=== PATIENT | male | born 1945 | race Caucasian/White ===

== ENCOUNTER 2020-06-06 14:30 | Outpatient (RCR) | payer MEDICARE, SELFPAY ==
[2020-04-12 07:50] VITALS: BMI 31.1
[2020-04-12 07:59] VITALS: BMI 31.1
== END 2020-07-02 15:56 | disposition home or self-care (01) ==
LOC: ANHDMC 14:30
PROVIDERS: PCP Family Medicine; Visit Provider Family Medicine
DX: E11.65 Type 2 diabetes mellitus with hyperglycemia (principal); Z71.3 Dietary counseling and surveillance; Z71.89 Other specified counseling
CPT/HCPCS: 97802; G0108; G0109

== ENCOUNTER 2020-12-13 10:57 | Outpatient (CLI) | payer MEDICARE, SELFPAY ==
--- NOTE | ~2020-12-13 | XR_ITS ---
EXAMINATION: XR chest 2V 12/13/2020 11:10 INDICATION: Cough PROCEDURE: 2 view chest COMPARISON: 07/27/2027 FINDINGS: The lungs are clear. The cardiomediastinal silhouette is within normal limits. There are no pleural effusions. There is no pneumothorax suspected. IMPRESSION: 1: NO ACUTE CARDIOPULMONARY DISEASE. Reviewed, dictated and finalized at location B.
== END 2020-12-13 10:58 | disposition home or self-care (01) ==
PROVIDERS: PCP Family Medicine; Visit Provider Family Medicine
DX: R05 Cough (principal); R09.89 Other specified symptoms and signs involving the circulatory and respiratory systems
CPT/HCPCS: 71046

== ENCOUNTER → 2021-04-05 03:04 | Outpatient (CLI) | payer MEDICARE, SELFPAY ==
[2021-04-05 18:36] LABS: SARS-CoV-2 RNA PCR Negative
== END ==
PROVIDERS: PCP Family Medicine; Visit Provider Family Medicine
DX: R05.9 Cough, unspecified (principal); Z20.822 Contact with and (suspected) exposure to COVID-19
CPT/HCPCS: C9803; U0003; U0005

== ENCOUNTER 2021-04-22 15:13 | Outpatient (CLI) | payer MEDICARE, SELFPAY ==
--- NOTE | ~2021-04-22 | XR_ITS ---
EXAMINATION: XR lumbar spine min 4V DATE: 04/22/2021 15:50 INDICATION: Dorsalgia, unspecified. Sciatica. TECHNIQUE: 5 views of lumbar spine were obtained. COMPARISON: Lumbar spine radiographs 10/22/2015, CT abdomen 10/13/2007 FINDINGS: There is 7 degrees levocurvature of thoracolumbar spine. There is mild chronic anterior wed ging of T12 and L1 vertebral bodies. There is mildly decreased disc height at L4-L5. There are endpla te osteophytes at all levels. There is multilevel facet joint osteoarthritis, severe bilaterally at L 5-S1. IMPRESSION: 1. Mild lumbar spondylosis. Reviewed, dictated and finalized at location A. IMPRESSION: 1. Mild lumbar spondylosis.
== END 2021-04-22 15:14 | disposition home or self-care (01) ==
LOC: ANHIMG 15:18
PROVIDERS: PCP Family Medicine; Visit Provider Nurse Practitioner
DX: M47.896 Other spondylosis, lumbar region (principal)
CPT/HCPCS: 72110

== ENCOUNTER 2021-04-24 11:50 | Emergency (ER) | payer MEDICARE, SELFPAY ==
[2021-04-24 11:52] VITALS: BP 155/63; PULSE 81; RESP 18; TEMP 36.3; O2SAT 100
[2021-04-24] MEDS: HYDROcodone/acetaminophen (*CRX) 5-325 MG TABLET 1 TAB PO (12:58)
--- NOTE | 2021-04-24 13:55 | ED.GENADULT ---
HPI - General Adult General Chief complaint: Back Pain/Injury <Ronal Cedillo PA-C - Last Filed: 04/24/21 14:01> Stated complaint: back pain <JAMES Richards Last Filed: 04/24/21 14:01> Time Seen by Provider: 04/24/21 12:35 <JAMES Richards Last Filed: 04/24/21 14:01> Source: patient and RN notes reviewed <JAMES Richards Last Filed: 04/24/21 14:01> Mode of arrival: ambulatory <JAMES Richards Last Filed: 04/24/21 14:01> Limitations: no limitations <JAMES Richards Last Filed: 04/24/21 14:01> History of Present Illness HPI narrative: Patient is a 76-year-old male who presents with left lower sciatic pain with pain radiating from the left SI region down the extremities being followed by primary care for this who put him on Toradol and Flexeril which have not helped he also had unremarkable radiographs except for arthritis he denies injury or trauma pain is worse with certain positions and activities he has follow-up with primary care for reevaluation denies any bladder or bowel incontinence or retention or any loss of function in the extremity <JAMES Richards Last Filed: 04/24/21 14:01> Related Data Home medications: Home Medications Medication Instructions Recorded Confirmed aspirin 81 mg tablet,delayed 81 mg PO DAILY 08/31/19 04/19/21 release dorzolamide 2 % eye drops 1 drop EACH EYE TID 02/27/20 04/19/21 latanoprost 0.005 % eye drops 1 drop EACH EYE DAILY 02/27/20 04/19/21 omega 6-ccj-brn-fish oil 1,200 mg 1 cap PO BID cap 02/27/20 04/19/21 (144 mg-216 mg) capsule prednisolone acetate 1 % eye 1 drop EACH EYE Q12H 02/27/20 04/19/21 drops,suspension timolol 0.5 % eye drops 1 drop EACH EYE Q12H 02/27/20 04/19/21 pioglitazone 45 mg tablet 45 mg PO DAILY tablet 11/22/20 04/19/21 pravastatin 40 mg tablet 40 mg PO DAILY tablet 11/22/20 04/19/21 glyburide 10 mg PO BID 12/12/20 04/19/21 loratadine 10 mg tablet 10 mg PO DAILY 12/17/20 04/19/21 <Ronal Cedillo PA-C - Last Filed: 04/24/21 14:01> Allergies/adverse reactions: Allergies Allergy/AdvReac Type Severity Reaction Status Date / Time Penicillins Allergy Unknown Unknown Verified 04/24/21 12:03 <Ronal Cedillo PA-C - Last Filed: 04/24/21 14:01> Review of Systems Review of Systems: All systems reviewed & are unremarkable except as noted in HPI and below <Ronal Cedillo PA-C - Last Filed: 04/24/21 14:01> [facility] Past Medical History Medical History: Medical History BPH NOS w/o ur obs/LUTS Dyslipidemia Environmental allergies Essential (primary) hypertension Left knee DJD Osteoarthritis Respiratory crackles at both lung bases Right knee DJD Type 2 diabetes mellitus without complication, without long-term current use of insulin <Ronal Cedillo PA-C - Last Filed: 04/24/21 14:01> Surgical History Surgical History: Surgical History History of removal of cyst (~1964) Right Wrist <Ronal Cedillo PA-C - Last Filed: 04/24/21 14:01> Family History Family History: Family History Sibling Family history of chronic obstructive pulmonary disease Father Family history of throat cancer Mother Family history of cardiovascular disease Other Family history of alcoholism Family history of arthritis <Ronal Cedillo PA-C - Last Filed: 04/24/21 14:01> Social History Social History: Social History Smoking packs per day: 1 Smoking cigarettes per day: 20.0 Years smoked: 25 Smoking pack-years: 25.00 Smoking status: Former smoker Second hand tobacco smoke exposure: No Smoking end date: 09/18/79 Alcohol intake: never Substance use: never Substance use type: does not use Gender
--- NOTE | 2021-04-24 14:23 | PC.NURSE ---
Pt still complaining of 10/10 pain after [facility] when completing discharge instructions. Requesting additional pain medication prior to leaving. JHONY Lund aware.
[2021-04-24] MEDS: diazePAM (*CRX) 5 MG TABLET 2.5 MG PO (14:48)
[2021-04-24 14:59] VITALS: BP 152/62; PULSE 83; RESP 18; TEMP 36.3; O2SAT 100
== END 2021-04-24 15:02 | disposition home or self-care (01) ==
PROVIDERS: Emergency Provider General Practice; PCP Family Medicine
DX: M54.16 Radiculopathy, lumbar region (principal); I10 Essential (primary) hypertension; E78.5 Hyperlipidemia, unspecified; M19.90 Unspecified osteoarthritis, unspecified site; E11.9 Type 2 diabetes mellitus without complications; Z79.4 Long term (current) use of insulin
CPT/HCPCS: 99283; A9270

== ENCOUNTER 2021-05-27 13:45 | Outpatient (RCR) | payer MEDICARE, SELFPAY ==
--- NOTE | 2021-05-08 16:07 | PTOPEVAL ---
Thank you for referring Wyatt Maxwell to [facility].? The patient is scheduled to be seen for therapy? 2 x/week for 4 weeks. Please review, sign, date and return this plan of care BIRGIT. I agree with and certify that the following plan of care is medically necessary. Referring Physician Date Admitting Provider: Attending Provider: Magalie Kirby, MONIQUE and Dr. Tino Monge Diagnosis low back pain and left knee pain Onset 3 wks Cause unknown Additional Evaluation Detail x-ray: There is 7 degrees levocurvature of thoracolumbar spine. There is mild chronic anterior wedging of T12 and L1 vertebral bodies. There is mildly decreased disc height at L4-L5. There are endplate osteophytes at all levels. There is multilevel facet joint osteoarthritis, severe bilaterally at L5-S1. Subjective Information He was given medication which Query Text:As Reported By Patient/ he reports improved his back Family pain. He reports his main issue now is left knee. Wants therapy to focus on his knee. He reports limitations with walking due to pain. Reports he was told he had inflammation of left knee. He has increased pain with prolonged standing, ascending steps, lifting/carrying. Reports his leg gave out on him when ascending steps. He has had multiple falls on the ice last year. Recent injection into the left knee. States he needs a TKR and is planning on having surgery in Jul. He has a walker and cane, but does not use them consistently. Prior Level of Function Home Setting Environmental Barriers Stairs, 2-4,Stairs, Greater than 4 Comments Additional Prior Level of Function He has 2 steps to enter and 1 Comments flight to basement. Pain Assessment Lower Back Reported Pain Level 1 Pain Description Aching Lowest Pain Intensity 0 Greatest Pain Intensity 1 Left Knee(s) Reported Pain Leve
--- NOTE | 2021-05-10 15:37 | PCPTNOTE ---
Spoke with pt regarding pacing his exercises during the day depending on his task and fatigue.
--- NOTE | 2021-06-03 14:43 | PCPTNOTE ---
Patient called & cancelled scheduled appointment this date due to not being able see well enough to drive today.
--- NOTE | 2021-06-05 07:29 | PCPTNOTE ---
Patient called & cancelled scheduled appointment this date due to eye problems. Did not resched his re-eval.
--- NOTE | 2021-06-17 09:21 | PCPTNOTE ---
Admitting Provider: Attending Provider: Magalie Kirby NP Patient:Wyatt Maxwell Date of :1945 Physical Therapy Discharge Note Patient has not returned for any further treatments since 05/27/2021, therefore he will be discharged at this time. Patient?s initial visit was on 05/08/2021 15:00 and he had a total of 5 visits with 3 cancels. The goals have been not met due to limited visits. Thank you for referring this patient to [facility]. Please review, sign, date and return this discharge summary BIRGIT. I have been updated about the patient's current status and I agree with discharge from the above service at this time. Referring Physician Date
== END 2021-06-17 12:55 | disposition home or self-care (01) ==
LOC: ANHPT 13:45
PROVIDERS: PCP Family Medicine; Visit Provider Nurse Practitioner
DX: M54.9 Dorsalgia, unspecified (principal)
CPT/HCPCS: 97110; 97116; 97162

== ENCOUNTER 2021-09-09 09:41 | Outpatient (CLI) | payer MEDICARE, SELFPAY ==
--- NOTE | 2021-09-09 10:46 | ECG_ITS ---
Measurements Intervals [employer] Rate: 80 P: 45 IN: 138 QRS: 44 QRSD: 96 T: 55 QT: 327 QTc: 379 Interpretive Statements SINUS RHYTHM NORMAL ECG NO PREVIOUS ECG AVAILABLE FOR COMPARISON Electronically Signed On 09-09-2021 15:45:44 [employer] by Ari Bhakta M.D.
[2021-09-09 11:21] LABS: Urine Cotinine NEGATIVE
[2021-09-09 11:23] LABS: INR 0.9; Prothrombin Time 12.2 Seconds (11.1-14.7)
[2021-09-09 11:24] LABS: Add Urine Microscopic? YES; Appearance Urine Clear (Clear); Bilirubin Urine Negative (Negative); Blood Urine Negative (Negative); Color Urine Yellow (Yellow); Glucose Urine UA 3+ mg/dL (Negative); Ketones Urine Negative (Negative); Leukocyte Esterase Ur Negative LEU/UL (Negative); Nitrate Urine Negative (Negative); Partial Thromboplastin Time 31.3 SECONDS (22.3-36.8); Protein Urine Negative (Negative); Specific Grav Ur 1.023 (1.001-1.035); Squamous Epithelial Cell Urine Rare /hpf (Few); Urobilinogen Urine Negative mg/dL (<2.0); WBC Urine 0-3 /hpf
== END 2021-09-09 09:42 | disposition home or self-care (01) ==
PROVIDERS: PCP Family Medicine; Visit Provider Orthopaedic Surgery
DX: M17.12 Unilateral primary osteoarthritis, left knee (principal); Z01.818 Encounter for other preprocedural examination
CPT/HCPCS: 80307; 81001; 85610; 85730; 87081; 93005

== ENCOUNTER 2021-09-26 20:01 | Observation (INO) | payer MEDICARE, SELFPAY ==
[2021-09-09 09:53] VITALS: BMI 31.4
--- NOTE | 2021-09-09 10:22 | PC.NURSE ---
Report to the Outpatient Waiting Room, entrance under the green pavilion located off [facility], at time _0600 on date _09/25/21 . OR Time: . - You and your visitor will be asked a series of questions to screen for COVID 19 for your protection. - A mask is required within the hospital. Preoperative COVID Testing Requirements: No COVID Test needed if: (proof is required; if not received patient will have Rapid Test prior to entry) - Patient has received COVID Vaccine at least 14 days prior to procedure date or - Patient has positive COVID test result within last 90 days of surgery date. COVID Test needed if above criteria is not met If not COVID vaccinated a COVID test must be conducted within 72 hours of surgery and patient is asked to isolate self from time of testing until procedure. You will go to the [facility] for your COVID testing. The [facility] is located at the corner of [address] [facility]. You will only be called if COVID results are positive and your surgeon may reschedule your elective surgery date. Patients may have clear liquids (water, carbonated beverages, clear teas, apple juice) until 3 hours prior to surgery with a maximum of 20 ounces. - No food from midnight until time of surgery Take the following medications with a SIP of water the morning of surgery: _EYE DROPS Medications to discontinue per physician _MELOXICAM PER DR COCHRAN. ALL VITAMINS AND SUPPLEMENTS 3 DAYS PRE OP Date to take last dose___09/21/21 Please no make-up, nail zambian, hairspray, perfume, deodorant, or body powder the day of surgery. No jewelry (including any body piercings) or valuables the day of surgery, leave them at home. Please take a shower or bath the night before, or the morning of, surgery with an antibacterial soap. Wear comfortable, loose fitting clothing. Children are encouraged to wear pajamas. - Jewelry must be removed prior to entering the operating room. Rings and piercings that are not removed may be cut off. - The hospital will not accept responsibility for valuables. - Please leave all valuables, including medications, at home the day of surgery. If you are going home after surgery, a licensed service car driver must drive you home. - NO public transportation without another adult. - We recommend that an adult stay with you for 24 hours following discharge. - We also recommend that you do not drive, make important decision, drink alcoholic beverages, or take any drugs that were not prescribed by your health care provider for at least 24 hours after your discharge time. One visitor will be allowed to accompany the patient into the hospital. Patients visitor will be instructed to remain with patient at all times or leave the building. We will allow the visitor to come back to the postoperative area when patient is ready. Follow any additional instructions given to you from your surgeon. VERBAL/WRITTEN instructions given to __PATIENT and asked if any additional questions and then verbalized understanding. Patient advised to call surgeon office or pre surgery nurse liaison [phone] if any additional questions.
[2021-09-09 10:45] VITALS: BP 139/51; PULSE 87; RESP 18; TEMP 37; O2SAT 100
--- NOTE | 2021-09-24 08:57 | WPDANESEPPF ---
Anes - Initial Pre Proc Eval Procedure: Operation Date: 09/25/21 07:30 Proposed Procedures p Left Total Knee Arthroplasty - Roshan Linares MD Date/Time: 09/24/21 08:57 Surgeon: Roshan Linares MD Pre Op Diagnosis: left knee djd Patient Data Age: 76 Gender: M Height: 1.6 m Weight: 80.3 kg Last Vital Signs Temp 37.0 C 09/09/21 10:45 Pulse 87 09/09/21 10:45 Resp 18 09/09/21 10:45 BP 139/51 L 09/09/21 10:45 Pulse Ox 100 09/09/21 10:45 Allergies Allergy/AdvReac Type Severity Reaction Status Date / Time Penicillins Allergy Unknown Unknown Verified 09/23/21 10:40 Home Medications Medication Instructions Recorded Confirmed Type dorzolamide 2 % eye drops 1 drop RIGHT EYE BID 02/27/20 09/23/21 History latanoprost 0.005 % eye drops 1 drop EACH EYE HS 02/27/20 09/23/21 History omega 4-lbs-mjz-fish oil 1,200 mg 1 cap PO BID cap 02/27/20 09/23/21 History (144 mg-216 mg) capsule prednisolone acetate 1 % eye 1 drop RIGHT EYE Q12H 02/27/20 09/23/21 History drops,suspension timolol 0.5 % eye drops 1 drop RIGHT EYE Q12H 02/27/20 09/23/21 History loratadine 10 mg tablet 10 mg PO DAILY 12/17/20 09/23/21 History pioglitazone 45 mg tablet 45 mg PO DAILY #90 tablet 05/13/21 09/23/21 Rx dapagliflozin 10 mg tablet 10 mg PO DAILY #90 tablet 06/18/21 09/23/21 Rx pravastatin 40 mg tablet 40 mg PO DAILY #90 tablet 07/03/21 09/23/21 Rx meloxicam 7.5 mg tablet 7.5 mg PO DAILY #90 tablet 07/10/21 09/23/21 Rx glyburide 5 mg tablet 10 mg PO BID #360 tablet 07/12/21 09/23/21 Rx ergocalciferol (vitamin D2) 1,250 1,250 mcg PO WEEKLY #12 cap 08/15/21 09/23/21 Rx mcg (50,000 unit) capsule losartan 100 mg tablet 100 mg PO DAILY #90 tablet 08/20/21 09/23/21 Rx metformin 1,000 mg tablet 1,000 mg PO BID #180 tablet 08/20/21 09/23/21 Rx finasteride 5 mg PO QPM 09/09/21 09/23/21 History chlorhexidine gluconate 4 % 1 applic TOPICAL ONCE #237 ml 09/16/21 09/23/21 Rx topical liquid Results Review: All pre-operative results and documents have been reviewed as part of the pre-operative evaluation. [facility] Past Medical History Medical History BPH NOS w/o ur obs/LUTS Dyslipidemia Environmental allergies Essential (primary) hypertension Left knee DJD Osteoarthritis Respiratory crackles at both lung bases Right knee DJD Type 2 diabetes mellitus without complication, without long-term current use of insulin Surgical History Surgical History History of removal of cyst (~1964) Right Wrist Family History Family History Sibling Family history of chronic obstructive pulmonary disease Father Family history of throat cancer Mother Family history of cardiovascular disease Other Family history of alcoholism Family history of arthritis Social History Social History Smoking packs per day: 1 Smoking cigarettes per day: 20.0 Years smoked: 22 Smoking pack-years: 22.00 Tobacco type: cigarettes Second hand tobacco smoke exposure: No Smoking end date: 09/18/79 Additional smoking assessment comments: DENIES ANY FORM OF TOBACCO USE Alcohol intake: former Alcohol use details: ALCOHOLIC LAST DRINK 1991 Substance use: never Substance use type: does not use Gender identity (if verbalized by the patient): Male Spiritual care concerns: No Agree to blood products: Yes Anes - Eval Final PreProcedure Day of Procedure 09/24/21 08:57 Patient weight: obese Heart: regular rate and rhythm Lungs: clear to auscultation and normal air movement Airway: Mallampati scale class II Neurological: alert and oriented Last oral intake: >/= 8 hours ASA classification: III Emergent: no Anesthetic plan: proceed Anesthesia type and monitoring: general LMA and standard monitoring
--- NOTE | 2021-09-24 09:19 | WPDANESEPPF ---
Anes - Initial Pre Proc Eval Procedure: Operation Date: 09/25/21 07:30 Proposed Procedures p Left Total Knee Arthroplasty - Roshan Linares MD Date/Time: 09/24/21 09:19 Surgeon: Roshan Linares MD Pre Op Diagnosis: left knee djd Patient Data Age: 76 Gender: M Height: 1.6 m Weight: 80.3 kg Last Vital Signs Temp 37.0 C 09/09/21 10:45 Pulse 87 09/09/21 10:45 Resp 18 09/09/21 10:45 BP 139/51 L 09/09/21 10:45 Pulse Ox 100 09/09/21 10:45 Allergies Allergy/AdvReac Type Severity Reaction Status Date / Time Penicillins Allergy Mild Rash Verified 09/25/21 06:12 Home Medications Medication Instructions Recorded Confirmed Type dorzolamide 2 % eye drops 1 drop RIGHT EYE BID 02/27/20 09/25/21 History latanoprost 0.005 % eye drops 1 drop EACH EYE HS 02/27/20 09/25/21 History omega 8-xkc-zgj-fish oil 1,200 mg 1 cap PO BID cap 02/27/20 09/25/21 History (144 mg-216 mg) capsule prednisolone acetate 1 % eye 1 drop RIGHT EYE Q12H 02/27/20 09/25/21 History drops,suspension timolol 0.5 % eye drops 1 drop RIGHT EYE Q12H 02/27/20 09/25/21 History loratadine 10 mg tablet 10 mg PO DAILY 12/17/20 09/25/21 History pioglitazone 45 mg tablet 45 mg PO DAILY #90 tablet 05/13/21 09/25/21 Rx dapagliflozin 10 mg tablet 10 mg PO DAILY #90 tablet 06/18/21 09/25/21 Rx pravastatin 40 mg tablet 40 mg PO DAILY #90 tablet 07/03/21 09/25/21 Rx meloxicam 7.5 mg tablet 7.5 mg PO DAILY #90 tablet 07/10/21 09/25/21 Rx glyburide 5 mg tablet 10 mg PO BID #360 tablet 07/12/21 09/25/21 Rx ergocalciferol (vitamin D2) 1,250 1,250 mcg PO WEEKLY #12 cap 08/15/21 09/25/21 Rx mcg (50,000 unit) capsule losartan 100 mg tablet 100 mg PO DAILY #90 tablet 08/20/21 09/25/21 Rx metformin 1,000 mg tablet 1,000 mg PO BID #180 tablet 08/20/21 09/25/21 Rx finasteride 5 mg PO QPM 09/09/21 09/25/21 History Patient hx anesthesia problems: none Family hx anesthesia problems: none Results Review: All pre-operative results and documents have been reviewed as part of the pre-operative evaluation. [facility] Past Medical History Medical History BPH NOS w/o ur obs/LUTS Dyslipidemia Environmental allergies Essential (primary) hypertension Left knee DJD Osteoarthritis Respiratory crackles at both lung bases Right knee DJD Type 2 diabetes mellitus without complication, without long-term current use of insulin Surgical History Surgical History History of removal of cyst (~1964) Right Wrist Family History Family History Sibling Family history of chronic obstructive pulmonary disease Father Family history of throat cancer Mother Family history of cardiovascular disease Other Family history of alcoholism Family history of arthritis Social History Social History Smoking packs per day: 1 Smoking cigarettes per day: 20.0 Years smoked: 22 Smoking pack-years: 22.00 Tobacco type: cigarettes Second hand tobacco smoke exposure: No Smoking end date: 09/18/79 Additional smoking assessment comments: DENIES ANY FORM OF TOBACCO USE Alcohol intake: former Alcohol use details: ALCOHOLIC LAST DRINK 1991 Substance use: never Substance use type: does not use Living arrangements: with family Gender identity (if verbalized by the patient): Male Spiritual care concerns: No Agree to blood products: Yes Anes - Eval Final PreProcedure Day of Procedure 09/24/21 09:19 Patient weight: obese Heart: regular rate and rhythm Lungs: clear to auscultation and normal air movement Airway: Mallampati scale class II Neurological: alert and oriented Last oral intake: >/= 8 hours ASA classification: III Emergent: no Anesthetic plan: proceed Anesthesia type and monitoring: general LMA and standard monito
--- NOTE | 2021-09-24 09:22 | WPDANESPNB ---
Anes - Peripheral Nerve Block Date/Time: 09/24/21 09:22 I have discussed with the patient/family/POA the placement of a peripheral nerve block for post-operative pain management, including associated risks, benefits, complications, and side effects. Alternative methods of post-operative analgesia were detailed. Questions were solicited and answers provided to the satisfaction of the patient/family/POA. Time-Out: A pre-procedural Time-Out was completed immediately before starting the procedure and confirmed: Patient Identification, Site, Procedure, Patient Position and the Availability of Requisite Equipment. Clinical Indications: Acute post-operative pain management requested by the operative surgeon. Nerve Block Insertion Note Anes-nerve block: adductor canal left Patient position: supine Skin prep: chlorhexidine Needle: 22 gauge, stimulating, insulated echogenic needle. Needle length: 80 mm Technique: ultrasound Injectate: bupivacaine 0.5% with epi 5 mcg/ml (30cc - no epi) Observations: tolerated well Complications: none Procedure start time:: 727 Procedure end time:: 731
[2021-09-25] VITALS (14 sets, daily range): BP systolic 108–143; BP diastolic 44–60; PULSE 80–99; RESP 12–18; TEMP 36.4–37.1; O2SAT 94–100
[2021-09-25] MEDS: ACETAMINOPHEN 500 MG TABLET 1000 MG PO (06:29)
[2021-09-25] MEDS: LACTATED RINGERS 1,000 ML 30 ML IV CONT ×2 (06:41→10:00)
[2021-09-25] MEDS: TRANEXAMIC ACID 1,000MG/ISO100 1,000 MG/100 ML BAG 200 MG IVPB (06:42)
[2021-09-25 06:48] LABS: Glucose Point of Care 176 mg/dl (65-105)
--- NOTE | 2021-09-25 07:23 | WPDHPUPDATE1 ---
History and Physical Update Update Date/Time: 09/25/21 07:23 History and Physical has been reviewed, including an updated exam of the patient. There are NO changes in the patient's condition. Risks, benefits, and alternatives have been discussed and questions answered. Patient agrees to proceed with procedure.
[2021-09-25] MEDS: ceFAZolin 2 GM/D5W 50 ML 2 GM/50 ML BAG IVPB ×3 (07:37→23:12)
[2021-09-25] MEDS: GENTAMICIN BONE CEMENT REFOBACIN 1 EACH TOPICAL (08:57)
[2021-09-25] MEDS: TRANEXAMIC ACID 1,000 MG/10 ML AMPUL 1000 MG IV PUSH (09:19)
--- NOTE | 2021-09-25 10:04 | SUR.PHASEI ---
1003 2 VIEWS OF XRAY TAKEN OF LT KNEE IN PACU.
--- NOTE | 2021-09-25 10:07 | W.PM.PROC2 ---
Procedure Note - Detailed Date of Procedure 09/25/21 Pre-op Diagnosis left knee djd Post-op Diagnosis Same Procedure Performed L TKA Surgeon Roshan Linares MD Anesthesia General Description of Procedure THE LEFT KNEE WAS PREPPED AND DRAPED IN THE STERILE FASHION. THERE WAS A 20 DEGREE FLEXION CONTRACTURE. A MIDLINE SKIN INCISION WAS MADE. A MEDIAL PARAPATELLAR ARTHROTOMY WAS MADE. THE PATELLA WAS EVERTED. THERE WAS TRICOMPARTMENT DJD. THERE WAS MINIMAL PATELLA DJD. AN INTRAMEDULLARY COLEMAN WAS PLACED IN THE FEMUR. A DISTAL FEMORAL CUT WAS MADE IN 5 DEGREES OF VALGUS REMOVING APPROXIMATELY 9 MM OF BONE FROM THE DISTAL FEMUR. THE FEMUR WAS SIZED TO 67.5. A 67.5 FEMORAL CUTTING BLOCK WAS PLACED IN 3 DEGREES OF EXTERNAL ROTATION AND IN ALIGNMENT WITH ADAN'S LINE AND THE TRANSEPICONDYLAR AXIS. ANTERIOR POSTERIOR AND CHAMFER CUTS WERE MADE. THE CUTS WERE EXCELLENT. NEXT AN INTRAMEDULLARY CUTTING GUIDE WAS PLACED IN THE TIBIA. A TRANS TIBIAL CUT WAS MADE ALONG THE LONG AXIS OF THE TIBIA. APPROXIMATELY 10 MM OF BONE WAS REMOVED FROM THE HIGH SIDE OF THE TIBIA. THE TIBIA WAS THEN PLANED TO A SMOOTH SURFACE. POSTERIOR FEMORAL OSTEOPHYTES WERE REMOVED FROM THE FEMORAL CONDYLES. A 75 TIBIAL TRIAL WAS PLACED IN ALIGNMENT WITH THE 1/3 MEDIAL ASPECT OF THE TIBIAL TUBERCLE. THEN A 67.5 FEMORAL TRIAL COMPONENT WAS PLACED. BOTH HAD EXCELLENT FITS. EVENTUALLY A 12 MM CR POLYETHYLENE TRIAL COMPONENT WAS PLACED. THE KNEE WAS TAKEN THROUGH A RANGE OF MOTION. THE KNEE CAME OUT TO FULL EXTENSION. THERE WAS NO ABNORMAL TILT TO THE PATELLA. THERE WAS GOOD A/P AND VARUS/VALGUS STABILITY. THERE WAS NO EXCESSIVE ROLL BACK WITH FLEXION. THE TRIAL COMPONENTS WERE REMOVED. THEN A 67.5 FEMORAL COMPONENT AND 75 TIBIAL COMPONENT WITH A 12 CR POLYETHYLENE COMPONENT WERE CEMENTED INTO PLACE. ONCE THE CEMENT WAS HARD THE KNEE WAS TAKEN THROUGH A ROM AGAIN AND FOUND TO BE STABLE WITH NO PATELLA TILT NO EXCESSIVE ROLL BACK WITH FLEXION AND GOOD STABILITY WITH COMPLETE AND FULL EXTENSION. THE KNEE WAS IRRIGATED WITH STERILE BETADINE AND WATER FOR ABOUT 3 MINUTES. THE BLEEDERS WERE CAUTERIZED. THE ARTHROTOMY WAS REPAIRED WITH NUMBER 1 VICRYL. THE SUB CUTANEOUS LAYER WITH 2-0 VICRYL AND THE SKIN WITH DEMETRIS. THE WOUND WAS WASHED AND A STERILE DRESSING WAS APPLIED. PATIENT WAS EXTUBATED. Estimated Blood Loss -50.0 Pathology None sent Complications No immediate complications Condition Stable Disposition PACU
[2021-09-25 10:16] LABS: Glucose Point of Care 196 mg/dl (65-105)
[2021-09-25] MEDS: fentaNYL CITRATE INJ (*CRX) 100 MCG/2 ML VIAL 25 MCG IV PUSH ×4 (10:40→10:56)
--- NOTE | 2021-09-25 11:15 | ADMGEN ---
This patient, Wyatt Maxwell, was admitted to 2 Medical Room 256-01. Patient/family oriented to hospital policies and general routines including ID bracelet, bed and alarms, visiting hours, pain management, procedures, bathroom and other care routines, personal items, smoking policy, room service/diet, and visiting hours. Information on how to activate the Rapid Response Team has been discussed. Patient/Family are encouraged to report perceived risks to care and to ask questions if they do not understand what they are told or what they should do.
[2021-09-25] MEDS: oxyCODONE/ACETAMINOPHEN (*CRX) 5-325 MG TABLET 1 TABLET PO (11:56)
--- NOTE | 2021-09-25 12:15 | PHAR ---
HOME MEDICATIONS VERIFIED BY PHARMACY: TIMOLOL 0.5% PREDNISOLONE ACETATE 1% LATANOPROST 0.005% DORZOLAMIDE HCL 2%
[2021-09-25 12:22] LABS: Glucose Point of Care 240 mg/dl (65-105)
[2021-09-25] MEDS: PRAVASTATIN SODIUM 20 MG TABLET 40 MG PO (12:35)
[2021-09-25] MEDS: LORATADINE 10 MG TABLET PO (12:36)
[2021-09-25] MEDS: LOSARTAN POTASSIUM 100 MG TABLET PO (12:36)
[2021-09-25] MEDS: polyethylene glycoL 3350 17 GM POWD.PACK PO (12:36)
[2021-09-25] MEDS: EMPAGLIFLOZIN 25 MG TABLET PO (12:36)
[2021-09-25] MEDS: PIOGLITAZONE HCL 45 MG TABLET PO (14:22)
[2021-09-25 16:52] LABS: Glucose Point of Care 282 mg/dl (65-105)
[2021-09-25] MEDS: INSULIN ASPART (*BKC) 100 UNITS/ML SUB-Q (17:26)
[2021-09-25] MEDS: metFORMIN HCL 500 MG TABLET 1000 MG PO (17:27)
[2021-09-25] MEDS: glyBURIDE 5 MG TABLET 10 MG PO (17:27)
[2021-09-25] MEDS: SENNA/DOCUSATE SODIUM TABLET 2 TAB PO (17:27)
[2021-09-25] MEDS: DORZOLAMIDE HCL 2% 1 EACH RIGHT EYE (17:28)
[2021-09-25] MEDS: FINASTERIDE 5 MG TABLET PO (17:30)
--- NOTE | 2021-09-25 17:30 | WPDCN ---
Assessment and Plan Assessment and plan (1) Left knee DJD: Qualifiers: Osteoarthritis type: primary Qualified Code(s): M17.12 - Unilateral primary osteoarthritis, left knee Code(s): M17.12 - Unilateral primary osteoarthritis, left knee Status: Acute Assessment and Plan: Postoperative day 0 status post left total knee arthroplasty. Wound care, pain control, and DVT prophylaxis deferred to Dr. Linares. On discharge the patient is going to return home. His daughter and grandchild live at home with him and will be helping him as needed. (2) Type 2 diabetes mellitus without complication, without long-term current use of insulin: Code(s): E11.9 - Type 2 diabetes mellitus without complications Status: Acute Assessment and Plan: He has had postoperative hyperglycemia but did not take his p.o. medications this morning in intensive age in of the surgery. Resume dapagliflozin, pioglitazone, and glyburide. Initiate sliding scale insulin, Accu-Cheks, and hypoglycemic protocol. (3) Essential (primary) hypertension: Code(s): I10 - Essential (primary) hypertension Status: Acute Assessment and Plan: Blood pressures were reviewed and they have been stable postoperatively. Continue antihypertensives and monitor. (4) Dyslipidemia: Code(s): E78.5 - Hyperlipidemia, unspecified Status: Acute Assessment and Plan: Continue pravastatin check LFTs in the morning. (5) Benign prostatic hyperplasia: Code(s): N40.0 - Benign prostatic hyperplasia without lower urinary tract symptoms Status: Acute Assessment and Plan: Continue finasteride. Monitor for urinary retention postoperatively. Additional Plan Thank you for allowing us to participate in this patient's care. Please do not hesitate to contact us with any questions. Supervising physician for this medical consultation is Dr. Sommers. HPI Data of Consult Date/Time: 09/25/21 17:30 Requesting Physician: Roshan Linares MD Primary Care Provider: Billie Monge MD Reason for consultation: Postoperative medical management, hyperglycemia. Consult Narrative Narrative: This is a very pleasant 76-year-old male with arthritis, type 2 diabetes mellitus, hypertension, dyslipidemia, glaucoma, and benign prostatic hyperplasia whom the hospitalist service has been consulted for hyperglycemia and management of his medical conditions postoperatively. He has had longstanding pain in both of his knees for years though his left knee has given him more grief. Despite conservative outpatient treatment including steroid and gel injections, he continues to have pain on a daily basis and he elected for replacement today. His surgery today was performed and no general anesthesia with no immediate complications documented an estimated blood loss of 50 mL. Postoperatively he has minimal discomfort and is doing quite well. He denies paresthesias, skin color, and temperature changes distal to the surgical site. He also denies postoperative fever, chills, chest pain, shortness of breath, nausea, and vomiting. I received a call just before dinner time that the patient's glucose was above 250 and the patient indicates that is very unusual for him and he does not think he has ever seen is glucose that high. It is rare that his glucose will be over 150. He did not take any of his oral hypoglycemic medications today in anticipation of his surgery, however. He denies polydipsia, polyuria, and blurry vision. Review of Systems Review of Systems: Twelve systems were reviewed. No recent cold or flu symptoms. No sick contacts. No history of venous thromboembolism. He has had no troubles voiding postoperatively but we did discuss possible urinary retention postanesthesia. No dysuria or hematuria. Except as documented, all other sy
[2021-09-25 20:59] LABS: Glucose Point of Care 234 mg/dl (65-105)
--- NOTE | ~2021-09-26 | XR_ITS ---
EXAMINATION: XR knee LT 2V DATE: 09/25/2021 10:06 INDICATION: Postoperative evaluation following left total knee arthroplasty. TECHNIQUE: Anteroposterior and lateral views of the left knee were obtained. COMPARISON: None. FINDINGS: Left total knee arthroplasty without patellar resurfacing appears well seated and in near anatomic al ignment. No fractures identified. Skin bren and expected postoperative subcutaneous, intramedull wilver and intra-articular gas. IMPRESSION: 1. Left total knee arthroplasty, negative for postoperative purposes. Reviewed, dictated and finalized at location A.
[2021-09-26 03:30] VITALS: BP 106/49; PULSE 91; RESP 16; TEMP 36.1; O2SAT 98
[2021-09-26] MEDS: oxyCODONE/ACETAMINOPHEN (*CRX) 5-325 MG TABLET 1 TABLET PO ×2 (06:04→10:21)
[2021-09-26 06:32] LABS: Basophils Percent Auto 0.3 % (0.2-1.2); Eosinophils Absolute Auto 0.1 K/mm3 (0-0.3); Eosinophils Percent Auto 0.6 % (0-4.4); Hemoglobin 12.2 g/dL (14.0-18.0); Immature Granulocyte Absolute 0.06 K/mm3 (0.00-0.031); Immature Granulocyte Percent A 0.6 % (0-0.5); Lymphocytes Absolute Auto 1.45 K/mm3 (0.9-3.2); Lymphocytes Percent Auto 14.9 % (18.3-44.2); Mean Corpuscular Hemoglobin 31.7 pg (26-34); Mean Corpuscular Volume 96.1 fl (80-100); Mean Platelet Volume 9.6 fl (7.4-10.4); Monocytes Absolute Auto 1.3 K/mm3 (0.1-0.6); Monocytes Percent Auto 13.1 % (2.6-8.5); Neutrophils Absolute Auto 6.9 K/mm3 (1.3-6.7); Neutrophils Percent Auto 70.5 % (45.5-73.1); Platelet Count Result 172 k/mm3 (150-375); Red Blood Count 3.85 M/mm3 (4.6-6.20); Red Cell Distribution Width 13.2 % (11.5-14.5); White Blood Count 9.7 K/mm3 (4.5-10.0)
[2021-09-26] MEDS: ceFAZolin 2 GM/D5W 50 ML 2 GM/50 ML BAG IVPB (06:34)
[2021-09-26 06:46] LABS: Anion Gap 8 mmol/L (8-16); Blood Urea Nitrogen 22 mg/dL (9-20); Calcium 8.1 mg/dL (8.4-10.2); Carbon Dioxide 24 mmol/L (22-30); Chloride 107 mmol/L (98-107); Estimated CRCL calculation 60 ml/min; Estimated Glomerular Filt Rate > 60; Glucose 183 mg/dL (65-110); Sodium 139 mmol/L (137-145)
[2021-09-26 06:48] LABS: Alanine Aminotransferase 16 U/L (4-50); Albumin Level 3.6 g/dL (3.5-5.1); Alkaline Phosphatase 51 U/L (38-126); Aspartate Amino Transferase 25 U/L (17-59); Bilirubin,Total 1.5 mg/dL (0.2-1.3)
[2021-09-26 07:13] LABS: Hemoglobin A1C 7.3 % (<5.7)
[2021-09-26 07:53] LABS: Glucose Point of Care 185 mg/dl (65-105)
[2021-09-26] MEDS: SENNA/DOCUSATE SODIUM TABLET 2 TAB PO ×2 (08:26→16:44)
[2021-09-26] MEDS: metFORMIN HCL 500 MG TABLET 1000 MG PO ×2 (08:26→16:45)
[2021-09-26] MEDS: EMPAGLIFLOZIN 25 MG TABLET PO (08:26)
[2021-09-26] MEDS: ASPIRIN 325 MG ENTERIC TABLET 650 MG PO (08:26)
[2021-09-26] MEDS: glyBURIDE 5 MG TABLET 10 MG PO ×2 (08:26→16:44)
[2021-09-26] MEDS: PRAVASTATIN SODIUM 20 MG TABLET 40 MG PO (08:27)
[2021-09-26] MEDS: PIOGLITAZONE HCL 45 MG TABLET PO (08:27)
[2021-09-26] MEDS: LOSARTAN POTASSIUM 100 MG TABLET PO (08:27)
[2021-09-26] MEDS: polyethylene glycoL 3350 17 GM POWD.PACK PO (08:27)
[2021-09-26] MEDS: LORATADINE 10 MG TABLET PO (08:27)
[2021-09-26] MEDS: DORZOLAMIDE HCL 2% 1 EACH RIGHT EYE ×2 (08:30→17:35)
[2021-09-26] MEDS: TIMOLOL MALEATE 0.5% OP SOLN 5 ML BOTTLE 1 DROP RIGHT EYE ×2 (08:30→17:35)
[2021-09-26 10:25] VITALS: BP 98/68; PULSE 96; RESP 18; TEMP 36.6; O2SAT 99
[2021-09-26 11:21] LABS: Glucose Point of Care 193 mg/dl (65-105)
[2021-09-26 14:00] VITALS: BP 116/52; PULSE 92; RESP 18; TEMP 36.1; O2SAT 100
--- NOTE | 2021-09-26 14:28 | PM.IMPN ---
Progress Note: A&P Assessment and Plan (1) Left knee DJD: Qualifiers: Osteoarthritis type: primary Qualified Code(s): M17.12 - Unilateral primary osteoarthritis, left knee Code(s): M17.12 - Unilateral primary osteoarthritis, left knee Status: Acute Assessment and Plan: Postoperative day 1 status post left total knee arthroplasty. Wound care, pain control, and DVT prophylaxis deferred to Dr. Linares. Tolerating PT/OT, additional plan per ortho. On discharge the patient is going to return home. His daughter and grandchild live at home with him and will be helping him as needed. (2) Type 2 diabetes mellitus without complication, without long-term current use of insulin: Code(s): E11.9 - Type 2 diabetes mellitus without complications Status: Acute Assessment and Plan: He continues to have postoperative hyperglycemia with last POC glucose at 193. We have resumed his dapagliflozin, pioglitazone, and glyburide. Continue applying sliding scale insulin, Accu-Cheks, and hypoglycemic protocol. (3) Essential (primary) hypertension: Code(s): I10 - Essential (primary) hypertension Status: Acute Assessment and Plan: Blood pressures were reviewed and they have been stable postoperatively. Continue antihypertensives and monitor. (4) Dyslipidemia: Code(s): E78.5 - Hyperlipidemia, unspecified Status: Acute Assessment and Plan: Continue pravastatin, LFTs reviewed and are appropriate to continue pravastatin. (5) Benign prostatic hyperplasia: Code(s): N40.0 - Benign prostatic hyperplasia without lower urinary tract symptoms Status: Acute Assessment and Plan: Continue finasteride. Patient is urinating normally, continue to monitor for urinary retention postoperatively. Additional Plan Thank you for allowing us to participate in this patient's care. Please do not hesitate to contact us with any questions. Time Spent With Patient Time with patient: 15 - 25 minutes Subjective Date/time seen: 09/26/21 14:28 Interval history: Mr. Maxwell is a pleasant 76 year old male, currently 1 day s/p left total knee arthroplasty. He is tolerating physical therapy and walked over 100 ft this morning, however he is now experiencing pain at a 5 or 6/10 and is requesting his 2nd dose of pain medication. His appetite is normal and he has eaten today. He denies fevers, chills, chest pain, shortness a breath, visual changes, or dizziness. He is urinating normally and has had 2 bowel movements today. Review of Systems Review of Systems: All systems reviewed & are unremarkable except as noted in HPI and below Constitutional: Constitutional: Reports as per HPI and Reports no additional constitutional complaints Eyes: Eyes: Reports as per HPI Exam Const: General: cooperative, healthy appearing, comfortable, no acute distress, well developed, alert and awake Nutritional Appearance: average body habitus and well nourished Orientation/consciousness: oriented to person, oriented to place, oriented to time and patient oriented x3 HENMT: Head: normal to inspection Ears: external ears normal General nose exam: Normal external nose present Face and sinus: normal facial exam Eyes: General: appearance normal, both eyes and all related structures EOM: EOMs intact bilaterally Resp: Effort & Inspection: normal respiratory effort and able to speak in complete sentences Auscultation: clear to auscultation bilaterally and abnormal I/E ratio Cardio: Jugular venous distension: no JVD Palpation: normal PMI Rate: regular rate Rhythm: regular rhythm Heart sounds: S1 normal heart sound present and S2 normal heart sound present GI: Inspection: visible herniation (umbilical, without evidence of strangulation or gangrene. ) GI Palp: No abdominal tendernes
[2021-09-26] MEDS: oxyCODONE/ACETAMINOPHEN (*CRX) 5-325 MG TABLET 2 TABLET PO ×2 (14:29→20:44)
[2021-09-26 16:21] LABS: Glucose Point of Care 193 mg/dl (65-105)
[2021-09-26] MEDS: FINASTERIDE 5 MG TABLET PO (16:45)
--- NOTE | 2021-09-26 17:25 | PM.PNORT ---
Progress Note: A&P Additional Plan POD 1 DOING WELL BUT NEEDS TO CONTINUE PT . HE WILL BE REASSESSED TOMORROW Time Spent With Patient Time with patient: less than 15 minutes Subjective Subjective Date/Time Seen: 09/26/21 17:25 POD 1 DOING WELL. SLOW PROGRESS WITH PT. NO CALF PAIN Exam Extrem: Other: VSS AFEBRILE DRESSING DRY NV INTACT NEG HOMANS SIGN CALF AND THIGH SOFT Objective Data Vital Signs Vital Signs: Vital Signs - 24 hr 09/25/21 20:11 09/25/21 20:50 09/25/21 23:42 Temperature 36.4 C 36.6 C Pulse Rate 95 92 Respiratory Rate 18 18 Blood Pressure 111/51 L 108/44 L Pulse Oximetry 95 95 98 09/26/21 03:30 09/26/21 10:25 09/26/21 14:00 Temperature 36.1 C L 36.6 C 36.1 C L Pulse Rate 91 96 92 Respiratory Rate 16 18 18 Blood Pressure 106/49 L 98/68 L 116/52 L Pulse Oximetry 98 99 100 Intake/Output Intake/Output: Intake & Output 09/23/21 09/24/21 09/25/21 09/26/21 23:59 23:59 23:59 23:59 Intake Total 1132 940 Output Total 1050 Balance 1132 -110 Meds/Results Medications: Active Medications Generic Name Dose Route Start Last Admin Trade Name Freq PRN Reason Stop Dose Admin Acetaminophen 1,000 mg 09/25/21 11:05 Acetaminophen 500 Mg Tablet PO Q6H PRN Pain Rated 1-3 Aspirin 650 mg 09/26/21 09:00 09/26/21 08:26 Aspirin 325 Mg Enteric Tablet PO 650 mg DAILY PRIYA Administration Dextrose 12.5 gm 09/25/21 16:57 Dextrose 50% 25 Gm/50 Ml Syringe IV PUSH PRN PRN Hypoglycemia Protocol Diazepam 5 mg 09/25/21 11:05 Diazepam (*Crx) 5 Mg Tablet PO Q8H PRN Spasms Diphenhydramine HCl 25 mg 09/25/21 11:05 Diphenhydramine Hcl Inj 50 Mg/Ml Vial IV PUSH Q6H PRN Itching Empagliflozin 25 mg 09/25/21 09:00 09/26/21 08:26 Empagliflozin 25 Mg Tablet PO 10/26/21 08:59 25 mg DAILY PRIYA Administration Ergocalciferol 50,000 unit 09/26/21 09:00 09/26/21 08:29 Ergocalciferol 50,000 Unit Capsule PO Not Given Th@0900 PRIYA Finasteride 5 mg 09/25/21 18:00 09/26/21 16:45 Finasteride 5 Mg Tablet PO 5 mg QPM PRIYA Administration Glucagon 1 mg 09/25/21 16:57 Glucagon For Inj 1 Mg Vial IM PRN PRN Hypoglycemia Protocol Glucose 15 gm 09/25/21 16:57 Glucose Oral Gel 15 Gm Of Glucse In 37.5 Gm Tube PO PRN PRN Hypoglycemia Protocol Glyburide 10 mg 09/25/21 17:00 09/26/21 16:44 Glyburide 5 Mg Tablet PO 10 mg BIDWM PRIYA Administration Home Med 1 each 09/25/21 17:00 09/26/21 08:30 Dorzolamide Hcl 2% Ophth Drops (Home Med) RIGHT EYE 10/25/21 16:59 1 each BID PRIYA Administration Home Med 1 each 09/25/21 21:00 09/25/21 20:19 Latanoprost 0.005% Op Soln (Home Med) EACH EYE 1 each HS PRIYA Administration Home Med 1 each 09/25/21 17:00 09/26/21 08:31 Prednisolone Acetate 1% Ophth (Home Med) RIGHT EYE 10/25/21 16:59 1 each BID PRIYA Administration Dextrose 1,000 mls @ 100 mls/hr 09/25/21 16:57 Dextrose 5% 1,000 Ml IVPB PRN PRN Hypoglycemia Protocol Insulin Aspart 2 - 5 units 09/25/21 17:00 09/26/21 16:38 Insulin Aspart (*Bkc) 100 Units/Ml SUB-Q Not Given TIDWM PRIYA Protocol Loratadine 10 mg 09/25/21 09:00 09/26/21 08:27 Loratadine 10 Mg Tablet PO 10 mg DAILY PRIYA Administration Losartan Potassium 100 mg 09/25/21 09:00 09/26/21 08:27 Losartan Potassium 100 Mg Tablet PO 100 mg DAILY PRIYA Administration Metformin HCl 1,000 mg 09/25/21 17:00 09/26/21 16:45 Metformin Hcl 500 Mg Tablet PO 1,000 mg BIDWM PRIYA Administration Naloxone HCl 0.1 mg 09/25/21 11:05 Naloxone Hcl 0.4 Mg/Ml Vial IV PUSH Q2M PRN Opiate Reversal Ondansetron HCl 4 mg 09/25/21 11:05 Ondansetron Inj 4 Mg/2 Ml Vial IV PUSH Q4H PRN Nausea And Vomiting Oxycodone/Acetaminophen 1 tablet 09/25/21 11:05 09/26/21 10:21 Oxycodone/Acetaminophen (*Crx) 5-325 Mg Tablet PO 1
[2021-09-26 19:52] VITALS: BP 120/53; PULSE 98; RESP 20; TEMP 36.9; O2SAT 98
[2021-09-26] MEDS: ONDANSETRON INJ 4 MG/2 ML VIAL IV PUSH (20:46)
[2021-09-26 21:24] LABS: Glucose Point of Care 246 mg/dl (65-105)
[2021-09-27] MEDS: oxyCODONE/ACETAMINOPHEN (*CRX) 5-325 MG TABLET 2 TABLET PO ×4 (02:05→20:48)
[2021-09-27 04:31] VITALS: BP 118/56; PULSE 108; RESP 20; TEMP 37.2; O2SAT 96
[2021-09-27 07:44] LABS: Glucose Point of Care 149 mg/dl (65-105)
[2021-09-27] MEDS: metFORMIN HCL 500 MG TABLET 1000 MG PO ×2 (07:47→16:43)
[2021-09-27] MEDS: glyBURIDE 5 MG TABLET 10 MG PO ×2 (07:47→16:44)
[2021-09-27] MEDS: ONDANSETRON INJ 4 MG/2 ML VIAL IV PUSH (07:54)
[2021-09-27] MEDS: ASPIRIN 325 MG ENTERIC TABLET 650 MG PO (08:30)
[2021-09-27] MEDS: LOSARTAN POTASSIUM 100 MG TABLET PO (08:31)
[2021-09-27] MEDS: EMPAGLIFLOZIN 25 MG TABLET PO (08:31)
[2021-09-27] MEDS: PRAVASTATIN SODIUM 20 MG TABLET 40 MG PO (08:31)
[2021-09-27] MEDS: LORATADINE 10 MG TABLET PO (08:31)
[2021-09-27] MEDS: PIOGLITAZONE HCL 45 MG TABLET PO (08:32)
[2021-09-27] MEDS: TIMOLOL MALEATE 0.5% OP SOLN 5 ML BOTTLE 1 DROP RIGHT EYE ×2 (08:33→16:45)
[2021-09-27] MEDS: DORZOLAMIDE HCL 2% 1 EACH RIGHT EYE ×2 (08:33→16:41)
[2021-09-27 08:42] VITALS: RESP 20; O2SAT 95
--- NOTE | 2021-09-27 08:51 | PM.IMCN ---
Assessment and Plan Assessment and plan (1) Left knee DJD: Qualifiers: Osteoarthritis type: primary Qualified Code(s): M17.12 - Unilateral primary osteoarthritis, left knee Code(s): M17.12 - Unilateral primary osteoarthritis, left knee Status: Acute Assessment and Plan: - Postoperative day 2 status post left total knee arthroplasty. - Wound care, pain control, and DVT prophylaxis deferred to Dr. Linares. - Tolerating PT/OT, additional plan per ortho. Pt. is frustrated as he thinks he should be able to do more at this point. Encouragement given. - Home at discharge. (2) Type 2 diabetes mellitus without complication, without long-term current use of insulin: Code(s): E11.9 - Type 2 diabetes mellitus without complications Status: Acute Assessment and Plan: - Fasting glucose elevated this AM in the 150s. Taking into account that the pt. will have some inflammation post-operatively, this should continue to be monitored. - Continue home oral hyperglycemics of Dapagliflozin, Glyburide and Actos. - Continue SSI with glucose checks AC and HS and hypoglycemic protocol. - Resume home medications upon discharge and have pt. follow up with PCP for further medication adjustment and monitoring. - Adhere to a diabetic diet strictly. (3) Essential (primary) hypertension: Code(s): I10 - Essential (primary) hypertension Status: Acute Assessment and Plan: - Blood pressures stable, continue home medication regimen. (4) Dyslipidemia: Code(s): E78.5 - Hyperlipidemia, unspecified Status: Acute Assessment and Plan: - Continue pravastatin (5) Benign prostatic hyperplasia: Code(s): N40.0 - Benign prostatic hyperplasia without lower urinary tract symptoms Status: Acute Assessment and Plan: - Continue finasteride. No signs of retention. Additional Plan Thank you for allowing us to participate in this patient's care. Please do not hesitate to contact us with any questions. HPI Data of Consult Consult date: 09/27/21 Requesting Physician: Erlinda Adams, YANCY-C Primary Care Provider: Billie Monge MD Consult Narrative Narrative: Wyatt Maxwell is a very pleasant 76 year old male of whom Hospitalist service has been consulted to medically mange status post elective Left total knee arthroscopy that was performed by Dr. Linares on 09/25/21 for a history significant of severe OA. Hospitalist service has been following and managing his hx of Type 2 DM, HTN, HLD, and BPH. Patien't post-operative medical course has been stable. He is urinating on his own and well, BP's have been at times on the low side of normal but they are still in an acceptable range, and the pt. has not been symptomatic. I suspicion that his Pain medication may be playing a role in this. In addition, the pt's urine output has been well and he is urinating independently without burning, urgency, frequency or signs of retention secondary to his BPH. His fasting glucose is in the 150's this morning, while we would technically like that number to be lower, we recognize that it is likely skewed from inflammation from his previous procedure. He will need to follow up with his PCP at discharge for this monitoring and further treatment/adjustment of medications. Orthopedic service to arrange anticoagulation according to their specifics. Today the pt. denies any complaints of pain other than in the operative knee, no dyspnea, no urinary burning, urgency, frequency or hematuria, headache, lightheadedness, or dizziness, and no N/V/D. He does voice some frustration that he does not seem to be getting around like he believes he should. He was encouraged to not give up, continue to work with therapy and take it one day at a time, not expecting the progress to all come at once. T
[2021-09-27 10:40] LABS: Glucose Point of Care 172 mg/dl (65-105)
[2021-09-27] MEDS: diazePAM (*CRX) 5 MG TABLET PO (11:38)
[2021-09-27 11:52] LABS: Glucose Point of Care 156 mg/dl (65-105)
[2021-09-27 14:35] VITALS: BP 128/56; PULSE 105; RESP 16; TEMP 36.3; O2SAT 98
--- NOTE | 2021-09-27 14:39 | PM.PNORT ---
Progress Note: A&P Additional Plan POD 2 WITH CONTINUED SLOW PROGRESS WITH PT. HE WILL TRY PT AGAIN THIS AFTERNOON AND IF HE PASSES HE MAY TRY FOR DC. IF NOT WE WILL TRY AGAIN TOMORROW. Subjective Subjective Date/Time Seen: 09/27/21 14:39 POD 2 DOING WELL WITH CONTINUED SLOW PROGRESS WITH PT. NO CALF PAIN Exam Extrem: Other: VSS AFEBRILE DRESSING DRY NV INTACT CALF SOFT NON TENDER NEG HOMANS SIGN Objective Data Vital Signs Vital Signs: Vital Signs - 24 hr 09/26/21 19:52 09/27/21 04:31 09/27/21 08:42 Temperature 36.9 C 37.2 C Pulse Rate 98 108 H Respiratory Rate 20 20 20 Blood Pressure 120/53 L 118/56 L Pulse Oximetry 98 96 95 09/27/21 14:35 Temperature 36.3 C L Pulse Rate 105 H Respiratory Rate 16 Blood Pressure 128/56 L Pulse Oximetry 98 Intake/Output Intake/Output: Intake & Output 09/24/21 09/25/21 09/26/21 09/27/21 23:59 23:59 23:59 23:59 Intake Total 1132 2130 870 Output Total 1650 Balance 1132 480 870 Meds/Results Medications: Active Medications Generic Name Dose Route Start Last Admin Trade Name Freq PRN Reason Stop Dose Admin Acetaminophen 1,000 mg 09/25/21 11:05 Acetaminophen 500 Mg Tablet PO Q6H PRN Pain Rated 1-3 Aspirin 650 mg 09/26/21 09:00 09/27/21 08:30 Aspirin 325 Mg Enteric Tablet PO 650 mg DAILY PRIYA Administration Dextrose 12.5 gm 09/25/21 16:57 Dextrose 50% 25 Gm/50 Ml Syringe IV PUSH PRN PRN Hypoglycemia Protocol Diazepam 5 mg 09/25/21 11:05 09/27/21 11:38 Diazepam (*Crx) 5 Mg Tablet PO 5 mg Q8H PRN Administration Spasms Diphenhydramine HCl 25 mg 09/25/21 11:05 Diphenhydramine Hcl Inj 50 Mg/Ml Vial IV PUSH Q6H PRN Itching Empagliflozin 25 mg 09/25/21 09:00 09/27/21 08:31 Empagliflozin 25 Mg Tablet PO 10/26/21 08:59 25 mg DAILY PRIYA Administration Ergocalciferol 50,000 unit 09/26/21 09:00 09/26/21 08:29 Ergocalciferol 50,000 Unit Capsule PO Not Given Th@0900 PRIYA Finasteride 5 mg 09/25/21 18:00 09/26/21 16:45 Finasteride 5 Mg Tablet PO 5 mg QPM PRIYA Administration Glucagon 1 mg 09/25/21 16:57 Glucagon For Inj 1 Mg Vial IM PRN PRN Hypoglycemia Protocol Glucose 15 gm 09/25/21 16:57 Glucose Oral Gel 15 Gm Of Glucse In 37.5 Gm Tube PO PRN PRN Hypoglycemia Protocol Glyburide 10 mg 09/25/21 17:00 09/27/21 07:47 Glyburide 5 Mg Tablet PO 10 mg BIDWM PRIYA Administration Home Med 1 each 09/25/21 17:00 09/27/21 08:33 Dorzolamide Hcl 2% Ophth Drops (Home Med) RIGHT EYE 10/25/21 16:59 1 each BID PRIYA Administration Home Med 1 each 09/25/21 21:00 09/26/21 20:47 Latanoprost 0.005% Op Soln (Home Med) EACH EYE 1 each HS PRIYA Administration Home Med 1 each 09/25/21 17:00 09/27/21 08:33 Prednisolone Acetate 1% Ophth (Home Med) RIGHT EYE 10/25/21 16:59 1 each BID PRIYA Administration Dextrose 1,000 mls @ 100 mls/hr 09/25/21 16:57 Dextrose 5% 1,000 Ml IVPB PRN PRN Hypoglycemia Protocol Insulin Aspart 2 - 5 units 09/25/21 17:00 09/27/21 11:10 Insulin Aspart (*Bkc) 100 Units/Ml SUB-Q Not Given TIDWM PRIYA Protocol Loratadine 10 mg 09/25/21 09:00 09/27/21 08:31 Loratadine 10 Mg Tablet PO 10 mg DAILY PRIYA Administration Losartan Potassium 100 mg 09/25/21 09:00 09/27/21 08:31 Losartan Potassium 100 Mg Tablet PO 100 mg DAILY PRIYA Administration Metformin HCl 1,000 mg 09/25/21 17:00 09/27/21 07:47 Metformin Hcl 500 Mg Tablet PO 1,000 mg BIDWM PRIYA Administration Naloxone HCl 0.1 mg 09/25/21 11:05 Naloxone Hcl 0.4 Mg/Ml Vial IV PUSH Q2M PRN Opiate Reversal Ondansetron HCl 4 mg 09/25/21 11:05 09/27/21 07:54 Ondansetron Inj 4 Mg/2 Ml Vial IV PUSH 4 mg Q4H PRN Administration Nausea And Vomiting Oxycodone/Acetaminophen 1 tablet 09/25/21 11:05 09/26/21 10:21 Oxycodone/Acetaminophen (*C
[2021-09-27 16:46] LABS: Glucose Point of Care 214 mg/dl (65-105)
[2021-09-27] MEDS: INSULIN ASPART (*BKC) 100 UNITS/ML SUB-Q (16:48)
[2021-09-27] MEDS: FINASTERIDE 5 MG TABLET PO (18:02)
[2021-09-27 20:39] VITALS: BP 117/48; PULSE 92; RESP 18; TEMP 35.9; O2SAT 99
[2021-09-27 20:59] LABS: Glucose Point of Care 215 mg/dl (65-105)
[2021-09-28] MEDS: oxyCODONE/ACETAMINOPHEN (*CRX) 5-325 MG TABLET 2 TABLET PO ×3 (04:28→17:55)
[2021-09-28 04:34] VITALS: BP 129/45; PULSE 101; RESP 20; TEMP 36.1; O2SAT 100
[2021-09-28 07:37] LABS: Glucose Point of Care 187 mg/dl (65-105)
[2021-09-28] MEDS: diazePAM (*CRX) 5 MG TABLET PO (08:19)
[2021-09-28] MEDS: DORZOLAMIDE HCL 2% 1 EACH RIGHT EYE ×2 (08:20→16:27)
[2021-09-28] MEDS: SENNA/DOCUSATE SODIUM TABLET 2 TAB PO ×2 (08:21→16:27)
[2021-09-28] MEDS: glyBURIDE 5 MG TABLET 10 MG PO ×2 (08:21→16:27)
[2021-09-28] MEDS: ASPIRIN 325 MG ENTERIC TABLET 650 MG PO (08:22)
[2021-09-28] MEDS: PIOGLITAZONE HCL 45 MG TABLET PO (08:23)
[2021-09-28] MEDS: EMPAGLIFLOZIN 25 MG TABLET PO (08:23)
[2021-09-28] MEDS: LORATADINE 10 MG TABLET PO (08:23)
[2021-09-28] MEDS: metFORMIN HCL 500 MG TABLET 1000 MG PO ×2 (08:23→16:26)
[2021-09-28] MEDS: PRAVASTATIN SODIUM 20 MG TABLET 40 MG PO (08:23)
[2021-09-28] MEDS: LOSARTAN POTASSIUM 100 MG TABLET PO (08:23)
[2021-09-28 08:28] VITALS: RESP 20; O2SAT 98
[2021-09-28] MEDS: TIMOLOL MALEATE 0.5% OP SOLN 5 ML BOTTLE 1 DROP RIGHT EYE ×2 (08:54→17:07)
[2021-09-28 11:45] LABS: Glucose Point of Care 136 mg/dl (65-105)
--- NOTE | 2021-09-28 12:30 | PM.PNORT ---
Progress Note: A&P Time Spent With Patient Time: POD 3 DOING WELL BUT STILL STRUGGLING WITH PAIN AND PT. HE HAS NO SIGN OF INFECTION OR SIGNIFICANT HEMATOMA. I THINK THE PATIENT WOULD BENEFIT FROM SOME KIND OF CORRECTION UNTIL HE IS ABLE TO CONFIDENTLY NAVIGATE HIMSELF WITH A WALKER. WE WILL CONTINUE TO EVALUATE HIM THIS Subjective Subjective Date/Time Seen: 09/28/21 12:30POD 3 DOING WELL. HE IS STILL STRUGGLING WITH PAIN CONTROL. HE APPEARS TO BE IMPROVING WITH PT SLIGHTLY BUT IS STILL HAVING SLOW PROGRESS. HE DENIES ANY CALF PAIN Exam Extrem: Other: VSS AFEBRILE DRESSING DRY NV INTACT NEG HOMANS SIGN CALF SOFT HOLDS KNEE IN EXTENSION WITH MINIMAL DIFFICULTY Objective Data Vital Signs Vital Signs: Vital Signs - 24 hr 09/27/21 14:35 09/27/21 20:39 09/28/21 04:34 Temperature 36.3 C L 35.9 C L 36.1 C L Pulse Rate 105 H 92 101 H Respiratory Rate 16 18 20 Blood Pressure 128/56 L 117/48 L 129/45 L Pulse Oximetry 98 99 100 09/28/21 08:28 Temperature Pulse Rate Respiratory Rate 20 Blood Pressure Pulse Oximetry 98 Intake/Output Intake/Output: Intake & Output 09/25/21 09/26/21 09/27/21 09/28/21 23:59 23:59 23:59 23:59 Intake Total 1132 2130 1660 490 Output Total 1650 Balance 8884 678 0952 490 Meds/Results Medications: Active Medications Generic Name Dose Route Start Last Admin Trade Name Freq PRN Reason Stop Dose Admin Acetaminophen 1,000 mg 09/25/21 11:05 Acetaminophen 500 Mg Tablet PO Q6H PRN Pain Rated 1-3 Aspirin 650 mg 09/26/21 09:00 09/28/21 08:22 Aspirin 325 Mg Enteric Tablet PO 650 mg DAILY PRIYA Administration Dextrose 12.5 gm 09/25/21 16:57 Dextrose 50% 25 Gm/50 Ml Syringe IV PUSH PRN PRN Hypoglycemia Protocol Diazepam 5 mg 09/25/21 11:05 09/28/21 08:19 Diazepam (*Crx) 5 Mg Tablet PO 5 mg Q8H PRN Administration Spasms Diphenhydramine HCl 25 mg 09/25/21 11:05 Diphenhydramine Hcl Inj 50 Mg/Ml Vial IV PUSH Q6H PRN Itching Empagliflozin 25 mg 09/25/21 09:00 09/28/21 08:23 Empagliflozin 25 Mg Tablet PO 10/26/21 08:59 25 mg DAILY PRIYA Administration Ergocalciferol 50,000 unit 09/26/21 09:00 09/26/21 08:29 Ergocalciferol 50,000 Unit Capsule PO Not Given Th@0900 PRIYA Finasteride 5 mg 09/25/21 18:00 09/27/21 18:02 Finasteride 5 Mg Tablet PO 5 mg QPM PRIYA Administration Glucagon 1 mg 09/25/21 16:57 Glucagon For Inj 1 Mg Vial IM PRN PRN Hypoglycemia Protocol Glucose 15 gm 09/25/21 16:57 Glucose Oral Gel 15 Gm Of Glucse In 37.5 Gm Tube PO PRN PRN Hypoglycemia Protocol Glyburide 10 mg 09/25/21 17:00 09/28/21 08:21 Glyburide 5 Mg Tablet PO 10 mg BIDWM PRIYA Administration Home Med 1 each 09/25/21 17:00 09/28/21 08:20 Dorzolamide Hcl 2% Ophth Drops (Home Med) RIGHT EYE 10/25/21 16:59 1 each BID PRIYA Administration Home Med 1 each 09/25/21 21:00 09/27/21 20:47 Latanoprost 0.005% Op Soln (Home Med) EACH EYE 1 each HS PRIYA Administration Home Med 1 each 09/25/21 17:00 09/28/21 08:37 Prednisolone Acetate 1% Ophth (Home Med) RIGHT EYE 10/25/21 16:59 1 each BID PRIYA Administration Dextrose 1,000 mls @ 100 mls/hr 09/25/21 16:57 Dextrose 5% 1,000 Ml IVPB PRN PRN Hypoglycemia Protocol Insulin Aspart 2 - 5 units 09/25/21 17:00 09/28/21 11:47 Insulin Aspart (*Bkc) 100 Units/Ml SUB-Q Not Given TIDWM PRIYA Protocol Loratadine 10 mg 09/25/21 09:00 09/28/21 08:23 Loratadine 10 Mg Tablet PO 10 mg DAILY PRIYA Administration Losartan Potassium 100 mg 09/25/21 09:00 09/28/21 08:23 Losartan Potassium 100 Mg Tablet PO 100 mg DAILY PRIYA Administration Metformin HCl 1,000 mg 09/25/21 17:00 09/28/21 08:23 Metformin Hcl 500 Mg Tablet PO 1,000 mg BIDWM PRIYA Administration Naloxone HCl 0.1 mg 09/25/21 11:05 Naloxone Hcl 0.4 Mg/Ml Vial I
--- NOTE | 2021-09-28 13:36 | PM.IMPN ---
Progress Note: A&P Assessment and Plan (1) Left knee DJD: Qualifiers: Osteoarthritis type: primary Qualified Code(s): M17.12 - Unilateral primary osteoarthritis, left knee Code(s): M17.12 - Unilateral primary osteoarthritis, left knee Status: Acute Assessment and Plan: - Postoperative day 2 status post left total knee arthroplasty. - Wound care, pain control, and DVT prophylaxis deferred to Dr. Linares. - Tolerating PT/OT, additional plan per ortho. Pt. is frustrated as he thinks he should be able to do more at this point. Encouragement given. - Home vs rehab now at discharge. (2) Type 2 diabetes mellitus without complication, without long-term current use of insulin: Code(s): E11.9 - Type 2 diabetes mellitus without complications Status: Acute Assessment and Plan: - Fasting glucose elevated this AM in the 150s. Taking into account that the pt. will have some inflammation post-operatively, this should continue to be monitored. - Continue home oral hyperglycemics of Dapagliflozin, Glyburide and Actos. - Continue SSI with glucose checks AC and HS and hypoglycemic protocol. - Resume home medications upon discharge and have pt. follow up with PCP for further medication adjustment and monitoring. - Adhere to a diabetic diet strictly. (3) Essential (primary) hypertension: Code(s): I10 - Essential (primary) hypertension Status: Acute Assessment and Plan: - Blood pressures stable, continue home medication regimen. (4) Dyslipidemia: Code(s): E78.5 - Hyperlipidemia, unspecified Status: Acute Assessment and Plan: - Continue pravastatin (5) Benign prostatic hyperplasia: Qualifiers: Lower urinary tract symptom presence: unspecified whether lower urinary tract symptoms present Qualified Code(s): N40.0 - Benign prostatic hyperplasia without lower urinary tract symptoms Code(s): N40.0 - Benign prostatic hyperplasia without lower urinary tract symptoms Status: Acute Assessment and Plan: - Continue finasteride. No signs of retention. Additional Plan Thank you for allowing us to participate in this patient's care. Please do not hesitate to contact us with any questions. Time Spent With Patient Time with patient: less than 15 minutes Subjective Date/time seen: 09/28/2115 This pt. was re-evaluated today as he was cleared by our service for discharge yesterday. Pt. continues to have some mobility difficulty with ambulation with PT instruction secondary to his pain. He has no new medical complaints at this time, but we will continue to follow until he is ready for discharge per Ortho. Review of Systems Review of Systems: A full 12 point ROS was performed and is otherwise unremarkable with exception of what is noted in HPI. All systems reviewed & are unremarkable except as noted in HPI and below Exam Narrative: General: Well-developed elderly male sitting up at the bedside today. HEENT: Left pupil is reactive. Extraocular motions intact. Sclerae anicteric. Oral mucosa moist. Oropharynx clear. Neck: Supple. Respiratory: Lungs are clear to auscultation bilaterally. Cardiovascular: Regular rate and rhythm with S1-S2. Gastrointestinal: Abdomen is soft, nontender, and nondistended with positive bowel sounds. Skin: Warm and dry. No rash or lesions on limited exam. Extremities: No cyanosis or clubbing. Radial and pedal pulses intact. Cap refill < 2 sec pedally. Musculoskeletal: Left knee with surgical dressing in place C/D/I. Neurological: A&Ox3, no focal deficit. Psychiatric: Pleasant and cooperative with normal mood and affect. Judgment and insight intact. Objective Data Vital Signs Vital Signs: Vital Signs - 24 hr 09/27/21 14:35 09/27/21 20:39 09/28/21 04:34 Temperature 97.4 F
[2021-09-28] MEDS: CELECOXIB 200 MG CAPSULE PO (16:26)
[2021-09-28 16:29] LABS: Glucose Point of Care 137 mg/dl (65-105)
[2021-09-28] MEDS: FINASTERIDE 5 MG TABLET PO (17:07)
[2021-09-28 20:00] VITALS: O2SAT 97
[2021-09-28 20:02] VITALS: BP 115/40; PULSE 91; RESP 18; TEMP 36.5; O2SAT 97
[2021-09-28 20:43] LABS: Glucose Point of Care 149 mg/dl (65-105)
[2021-09-29] VITALS: BP 143/59; PULSE 90; RESP 20; TEMP 36.4; O2SAT 98
[2021-09-29] MEDS: oxyCODONE/ACETAMINOPHEN (*CRX) 5-325 MG TABLET 2 TABLET PO ×4 (02:36→22:06)
[2021-09-29 06:00] VITALS: BP 101/52; PULSE 77; RESP 21; TEMP 36.4; O2SAT 100
[2021-09-29 07:38] LABS: Glucose Point of Care 75 mg/dl (65-105)
[2021-09-29] MEDS: EMPAGLIFLOZIN 25 MG TABLET PO (08:18)
[2021-09-29] MEDS: CELECOXIB 200 MG CAPSULE PO ×2 (08:18→16:32)
[2021-09-29] MEDS: metFORMIN HCL 500 MG TABLET 1000 MG PO ×2 (08:18→16:40)
[2021-09-29] MEDS: LOSARTAN POTASSIUM 100 MG TABLET PO (08:18)
[2021-09-29] MEDS: PIOGLITAZONE HCL 45 MG TABLET PO (08:18)
[2021-09-29] MEDS: PRAVASTATIN SODIUM 20 MG TABLET 40 MG PO (08:18)
[2021-09-29] MEDS: ASPIRIN 325 MG ENTERIC TABLET 650 MG PO (08:19)
[2021-09-29] MEDS: glyBURIDE 5 MG TABLET 10 MG PO ×2 (08:19→16:32)
[2021-09-29] MEDS: SENNA/DOCUSATE SODIUM TABLET 2 TAB PO ×2 (08:19→16:32)
[2021-09-29] MEDS: LORATADINE 10 MG TABLET PO (08:19)
[2021-09-29] MEDS: DORZOLAMIDE HCL 2% 1 EACH RIGHT EYE ×2 (08:20→16:32)
[2021-09-29] MEDS: polyethylene glycoL 3350 17 GM POWD.PACK PO (08:22)
[2021-09-29 08:27] VITALS: RESP 20; O2SAT 100
[2021-09-29] MEDS: TIMOLOL MALEATE 0.5% OP SOLN 5 ML BOTTLE 1 DROP RIGHT EYE ×2 (08:34→17:08)
[2021-09-29 11:16] LABS: Glucose Point of Care 188 mg/dl (65-105)
--- NOTE | 2021-09-29 13:46 | PM.PNORT ---
Progress Note: A&P Additional Plan POD 4 IMPROVING. PLAN DC FOR [facility] Subjective Subjective Date/Time Seen: 09/29/21 13:46 POD 4 IMPROVING. NO CALF PAIN Exam Extrem: Other: VSS AFEBRILE DRESSING DRY NEG HOMANS SIGN Objective Data Vital Signs Vital Signs: Vital Signs - 24 hr 09/28/21 20:00 09/28/21 20:02 09/29/21 00:00 Temperature 36.5 C 36.4 C L Pulse Rate 91 90 Respiratory Rate 18 20 Blood Pressure 115/40 L 143/59 H Pulse Oximetry 97 97 98 09/29/21 06:00 09/29/21 08:27 Temperature 36.4 C Pulse Rate 77 Respiratory Rate 21 H 20 Blood Pressure 101/52 L Pulse Oximetry 100 100 Intake/Output Intake/Output: Intake & Output 09/26/21 09/27/21 09/28/21 09/29/21 23:59 23:59 23:59 23:59 Intake Total 2130 1660 1460 960 Output Total 1650 Balance 480 1660 1460 960 Meds/Results Medications: Active Medications Generic Name Dose Route Start Last Admin Trade Name Freq PRN Reason Stop Dose Admin Acetaminophen 1,000 mg 09/25/21 11:05 Acetaminophen 500 Mg Tablet PO Q6H PRN Pain Rated 1-3 Aspirin 650 mg 09/26/21 09:00 09/29/21 08:19 Aspirin 325 Mg Enteric Tablet PO 650 mg DAILY PRIYA Administration Celecoxib 200 mg 09/28/21 17:00 09/29/21 08:18 Celecoxib 200 Mg Capsule PO 200 mg BIDWM PRIYA Administration Dextrose 12.5 gm 09/25/21 16:57 Dextrose 50% 25 Gm/50 Ml Syringe IV PUSH PRN PRN Hypoglycemia Protocol Diazepam 5 mg 09/25/21 11:05 09/28/21 08:19 Diazepam (*Crx) 5 Mg Tablet PO 5 mg Q8H PRN Administration Spasms Diphenhydramine HCl 25 mg 09/25/21 11:05 Diphenhydramine Hcl Inj 50 Mg/Ml Vial IV PUSH Q6H PRN Itching Empagliflozin 25 mg 09/25/21 09:00 09/29/21 08:18 Empagliflozin 25 Mg Tablet PO 10/26/21 08:59 25 mg DAILY PRIYA Administration Ergocalciferol 50,000 unit 09/26/21 09:00 09/26/21 08:29 Ergocalciferol 50,000 Unit Capsule PO Not Given Th@0900 PRIYA Finasteride 5 mg 09/25/21 18:00 09/28/21 17:07 Finasteride 5 Mg Tablet PO 5 mg QPM PRIYA Administration Glucagon 1 mg 09/25/21 16:57 Glucagon For Inj 1 Mg Vial IM PRN PRN Hypoglycemia Protocol Glucose 15 gm 09/25/21 16:57 Glucose Oral Gel 15 Gm Of Glucse In 37.5 Gm Tube PO PRN PRN Hypoglycemia Protocol Glyburide 10 mg 09/25/21 17:00 09/29/21 08:19 Glyburide 5 Mg Tablet PO 10 mg BIDWM PRIYA Administration Home Med 1 each 09/25/21 17:00 09/29/21 08:20 Dorzolamide Hcl 2% Ophth Drops (Home Med) RIGHT EYE 10/25/21 16:59 1 each BID PRIYA Administration Home Med 1 each 09/25/21 21:00 09/28/21 20:22 Latanoprost 0.005% Op Soln (Home Med) EACH EYE 1 each HS PRIYA Administration Home Med 1 each 09/25/21 17:00 09/29/21 08:34 Prednisolone Acetate 1% Ophth (Home Med) RIGHT EYE 10/25/21 16:59 1 each BID PRIYA Administration Dextrose 1,000 mls @ 100 mls/hr 09/25/21 16:57 Dextrose 5% 1,000 Ml IVPB PRN PRN Hypoglycemia Protocol Insulin Aspart 2 - 5 units 09/25/21 17:00 09/29/21 11:21 Insulin Aspart (*Bkc) 100 Units/Ml SUB-Q Not Given TIDWM PRIYA Protocol Loratadine 10 mg 09/25/21 09:00 09/29/21 08:19 Loratadine 10 Mg Tablet PO 10 mg DAILY PRIYA Administration Losartan Potassium 100 mg 09/25/21 09:00 09/29/21 08:18 Losartan Potassium 100 Mg Tablet PO 100 mg DAILY PRIYA Administration Metformin HCl 1,000 mg 09/25/21 17:00 09/29/21 08:18 Metformin Hcl 500 Mg Tablet PO 1,000 mg BIDWM PRIYA Administration Naloxone HCl 0.1 mg 09/25/21 11:05 Naloxone Hcl 0.4 Mg/Ml Vial IV PUSH Q2M PRN Opiate Reversal Ondansetron HCl 4 mg 09/25/21 11:05 09/27/21 07:54 Ondansetron Inj 4 Mg/2 Ml Vial IV PUSH 4 mg Q4H PRN Administration Nausea And Vomiting Oxycodone/Acetaminophen 1 tablet 09/25/21 11:05 09/26/21 10:21 Oxycodone/Acetaminophen (*Crx) 5-325 Mg Tablet PO 1 tablet
[2021-09-29 14:00] VITALS: BP 112/50; PULSE 95; RESP 18; TEMP 35.7; O2SAT 99
[2021-09-29 16:21] LABS: Glucose Point of Care 175 mg/dl (65-105)
[2021-09-29] MEDS: FINASTERIDE 5 MG TABLET PO (17:08)
[2021-09-29 22:00] VITALS: BP 100/54; PULSE 81; RESP 18; TEMP 36.3; O2SAT 96
[2021-09-29 22:06] LABS: Glucose Point of Care 178 mg/dl (65-105)
[2021-09-29 22:37] VITALS: O2SAT 98
[2021-09-30 02:00] VITALS: BP 106/48; PULSE 81; RESP 18; TEMP 36.2; O2SAT 96
[2021-09-30] MEDS: oxyCODONE/ACETAMINOPHEN (*CRX) 5-325 MG TABLET 2 TABLET PO ×2 (05:26→12:13)
[2021-09-30 06:00] VITALS: BP 126/57; PULSE 99; RESP 21; TEMP 36; O2SAT 100
[2021-09-30 07:52] LABS: Glucose Point of Care 139 mg/dl (65-105)
[2021-09-30] MEDS: glyBURIDE 5 MG TABLET 10 MG PO ×2 (08:47→16:38)
[2021-09-30] MEDS: ASPIRIN 325 MG ENTERIC TABLET 650 MG PO (08:47)
[2021-09-30] MEDS: SENNA/DOCUSATE SODIUM TABLET 2 TAB PO ×2 (08:48→16:38)
[2021-09-30] MEDS: LOSARTAN POTASSIUM 100 MG TABLET PO (08:48)
[2021-09-30] MEDS: LORATADINE 10 MG TABLET PO (08:48)
[2021-09-30] MEDS: CELECOXIB 200 MG CAPSULE PO ×2 (08:48→16:37)
[2021-09-30] MEDS: PIOGLITAZONE HCL 45 MG TABLET PO (08:48)
[2021-09-30] MEDS: PRAVASTATIN SODIUM 20 MG TABLET 40 MG PO (08:48)
[2021-09-30] MEDS: EMPAGLIFLOZIN 25 MG TABLET PO (08:49)
[2021-09-30] MEDS: metFORMIN HCL 500 MG TABLET 1000 MG PO ×2 (08:49→16:39)
[2021-09-30] MEDS: DORZOLAMIDE HCL 2% 1 EACH RIGHT EYE ×2 (08:50→16:37)
[2021-09-30 08:55] VITALS: PULSE 99; RESP 20; O2SAT 100
[2021-09-30] MEDS: TIMOLOL MALEATE 0.5% OP SOLN 5 ML BOTTLE 1 DROP RIGHT EYE ×2 (09:18→16:39)
[2021-09-30 09:22] VITALS: BP 121/46; PULSE 99; RESP 18; TEMP 36.7; O2SAT 97
[2021-09-30 11:33] LABS: Glucose Point of Care 258 mg/dl (65-105)
[2021-09-30] MEDS: INSULIN ASPART (*BKC) 100 UNITS/ML SUB-Q (11:43)
[2021-09-30 12:39] VITALS: BP 123/48; PULSE 81; RESP 16; TEMP 36.6; O2SAT 100
[2021-09-30 14:57] VITALS: BP 123/47; PULSE 92; RESP 18; TEMP 36.1; O2SAT 98
[2021-09-30 16:31] LABS: Glucose Point of Care 183 mg/dl (65-105)
--- NOTE | 2021-09-30 16:34 | PM.PNORT ---
Progress Note: A&P Additional Plan POD 5 DOING WELL. OK TO DC HOME F/U IN 3 WEEKS Subjective Subjective Date/Time Seen: 09/30/21 16:34 POD 5 IMPROVING. HE HAS PASSED PT. NO CALF PAIN Exam Extrem: Other: VSS AFEBRILE DRESSING DRY NV INTACT NEG HOMANS SIGN Objective Data Vital Signs Vital Signs: Vital Signs - 24 hr 09/29/21 22:00 09/29/21 22:37 09/30/21 02:00 Temperature 36.3 C L 36.2 C L Pulse Rate 81 81 Respiratory Rate 18 18 Blood Pressure 100/54 L 106/48 L Pulse Oximetry 96 98 96 09/30/21 06:00 09/30/21 08:55 09/30/21 09:22 Temperature 36.0 C L 36.7 C Pulse Rate 99 99 99 Respiratory Rate 21 H 20 18 Blood Pressure 126/57 L 121/46 L Pulse Oximetry 100 100 97 09/30/21 12:39 09/30/21 14:57 Temperature 36.6 C 36.1 C L Pulse Rate 81 92 Respiratory Rate 16 18 Blood Pressure 123/48 L 123/47 L Pulse Oximetry 100 98 Intake/Output Intake/Output: Intake & Output 09/27/21 09/28/21 09/29/21 09/30/21 23:59 23:59 23:59 23:59 Intake Total 1660 1460 1925 1120 Balance 1660 1460 1925 1120 Meds/Results Medications: Active Medications Generic Name Dose Route Start Last Admin Trade Name Freq PRN Reason Stop Dose Admin Acetaminophen 1,000 mg 09/25/21 11:05 Acetaminophen 500 Mg Tablet PO Q6H PRN Pain Rated 1-3 Aspirin 650 mg 09/26/21 09:00 09/30/21 08:47 Aspirin 325 Mg Enteric Tablet PO 650 mg DAILY PRIYA Administration Celecoxib 200 mg 09/28/21 17:00 09/30/21 08:48 Celecoxib 200 Mg Capsule PO 200 mg BIDWM PRIYA Administration Dextrose 12.5 gm 09/25/21 16:57 Dextrose 50% 25 Gm/50 Ml Syringe IV PUSH PRN PRN Hypoglycemia Protocol Diazepam 5 mg 09/25/21 11:05 09/28/21 08:19 Diazepam (*Crx) 5 Mg Tablet PO 5 mg Q8H PRN Administration Spasms Diphenhydramine HCl 25 mg 09/25/21 11:05 Diphenhydramine Hcl Inj 50 Mg/Ml Vial IV PUSH Q6H PRN Itching Empagliflozin 25 mg 09/25/21 09:00 09/30/21 08:49 Empagliflozin 25 Mg Tablet PO 10/26/21 08:59 25 mg DAILY PRIYA Administration Ergocalciferol 50,000 unit 09/26/21 09:00 09/26/21 08:29 Ergocalciferol 50,000 Unit Capsule PO Not Given Th@0900 PRIYA Finasteride 5 mg 09/25/21 18:00 09/29/21 17:08 Finasteride 5 Mg Tablet PO 5 mg QPM PRIYA Administration Glucagon 1 mg 09/25/21 16:57 Glucagon For Inj 1 Mg Vial IM PRN PRN Hypoglycemia Protocol Glucose 15 gm 09/25/21 16:57 Glucose Oral Gel 15 Gm Of Glucse In 37.5 Gm Tube PO PRN PRN Hypoglycemia Protocol Glyburide 10 mg 09/25/21 17:00 09/30/21 08:47 Glyburide 5 Mg Tablet PO 10 mg BIDWM PRIYA Administration Home Med 1 each 09/25/21 17:00 09/30/21 08:50 Dorzolamide Hcl 2% Ophth Drops (Home Med) RIGHT EYE 10/25/21 16:59 1 each BID PRIYA Administration Home Med 1 each 09/25/21 21:00 09/29/21 20:21 Latanoprost 0.005% Op Soln (Home Med) EACH EYE 1 each HS PRIYA Administration Home Med 1 each 09/25/21 17:00 09/30/21 09:03 Prednisolone Acetate 1% Ophth (Home Med) RIGHT EYE 10/25/21 16:59 1 each BID PRIYA Administration Dextrose 1,000 mls @ 100 mls/hr 09/25/21 16:57 Dextrose 5% 1,000 Ml IVPB PRN PRN Hypoglycemia Protocol Insulin Aspart 2 - 5 units 09/25/21 17:00 09/30/21 11:43 Insulin Aspart (*Bkc) 100 Units/Ml SUB-Q 3 units TIDWM PRIYA Administration Protocol Loratadine 10 mg 09/25/21 09:00 09/30/21 08:48 Loratadine 10 Mg Tablet PO 10 mg DAILY PRIYA Administration Losartan Potassium 100 mg 09/25/21 09:00 09/30/21 08:48 Losartan Potassium 100 Mg Tablet PO 100 mg DAILY PRIYA Administration Metformin HCl 1,000 mg 09/25/21 17:00 09/30/21 08:49 Metformin Hcl 500 Mg Tablet PO 1,000 mg BIDWM PRIYA Administration Naloxone HCl 0.1 mg 09/25/21 11:05 Naloxone Hcl 0.4 Mg/Ml Vial IV PUSH Q2M PRN Opiate Reversal Ondansetron HCl 4 mg 09/25/21 11:05
--- NOTE | 2021-09-30 16:36 | PM.DS ---
DS: Admitting Diagnosis Discharge Date 09/30/21 Admitting Diagnosis L KNEE DJD DS: Discharge Diagnosis Discharge Diagnosis (1) Left knee DJD: Qualifiers: Osteoarthritis type: primary Qualified Code(s): M17.12 - Unilateral primary osteoarthritis, left knee Code(s): M17.12 - Unilateral primary osteoarthritis, left knee Status: Acute DS: Summary Hospital Course Reason for hospitalization: L TKA Hospital Course: PATIENT WAS ADMITTED S/P TOTAL LEFT TKA ARTHROPLASTY FOR POSTOPERATIVE MEDICAL MANAGEMENT, PAIN CONTROL AND MOBILIZATION WITH PHYSICAL AND OCCUPATIONAL THERAPY. THE PATIENT PROGRESSED WELL WITH PT/OT. LABS AND VITALS REMAINED STABLE AND PAIN WELL CONTROLLED. THE PATIENT HAS BEEN CLEARED TO BE DISCHARGED TO HOME. FOLLOW UP APPOINTMENT SCHEDULED. DISCHARGE INSTRUCTIONS DISCUSSED AT LENGTH WITH THE PATIENT. MEDICATIONS REVIEWED. Time spent discussing smoking cessation with patient: 3 to 10 minutes Status at Discharge Cognitive/behavioral status at discharge: STABLE Functional status at discharge: uses cane/walker Time Spent with Patient Time attestation: Total time spent providing and/or coordinating discharge services: Time spent: Less than 30 minutes DS: Data Data Completed and Pending Labs on day of discharge: Labs from last 24 hours 09/30/21 09/30/21 09/30/21 16:25 11:29 07:37 POC Capillary Glucose 183 H 258 H 139 H 09/29/21 22:03 POC Capillary Glucose 178 H Discharge Plan Discharge Attending physician on discharge: Roshan Linares Consulting providers: Lilian Pearson ; Modesta Dunn Anticipated Discharge Date/Time: 09/30/21 16:39 Patient Disposition: Home Health Service Activity: may shower, no driving and follow weight bearing status Diet: as tolerated Wound Care Instructions: keep dressing dry Discharge Instructions: Per Care Coordination, pt. will D/C home with [facility] . [facility] will contact pt. at time of discharge. ROSHAN LINARES M.D. [facility] [address] [place] [address] [address] [place] [address] POST OPERATIVE DISCHARGE INSTRUCTIONS FOLLOWING TOTAL KNEE REPLACEMENT SURGERY ? Your dressing will be changed prior to your discharge. You will be sent home with one additional dressing to be changed on post op day 7 by the home health RN. Your bren will be removed on the 14th day after surgery and steri-strips will be placed. Please practice good hand hygiene and do not touch your incision in order to prevent infection. ? You may shower with your dressing but do not submerge in a bath tub. ? Do not drive or operate machinery until you are released by Dr. Linares. ? Do not walk without a walker for any reason until you are released by Dr. Linares. ? Continue to use your ice machine. Please use a towel or pillow case to protect your skin before applying your ice machine. ? Do NOT place a pillow under your knee. You may use a pillow from the calf down if needed. This will prevent a flexion contracture postoperatively. ? You may begin use of your CPM machine at home if you have been given one pre-operatively. DO NOT USE WHILE YOU ARE SLEEPING. ? Your first post op appointment was sent to you via mail preoperatively. If you have any questions or are unable to make your appointment, please contact our office for scheduling questions. ? Your medications have been sent to your pharmacy. You have been sent home with pain medication. We have also sent you with a stool softener as narcotics can cause constipation. Please keep this in mind during your postoperative recovery. If you are not experiencing regular bowel movements, please contact our office for further instruction. ? Please contact our office with any questions/concerns regarding your knee at [phone]. Patient Instructions: Antibiotic Form, Pain Management in Older Adults (DC), Join
[2021-09-30] MEDS: FINASTERIDE 5 MG TABLET PO (16:39)
[2021-09-30] MEDS: oxyCODONE/ACETAMINOPHEN (*CRX) 5-325 MG TABLET 1 TABLET PO (18:22)
== END 2021-09-30 18:30 | disposition home health service (06) ==
LOC: ANHSURGERY 22:23 → ANH2MED 22:23
PROVIDERS: Physician Assistant; Admitting Provider Orthopaedic Surgery; PCP Family Medicine; Visit Provider Nurse Practitioner Adult Health
PROC: (CPT 27447; principal; 2021-09-25 07:30)
DX: M17.12 Unilateral primary osteoarthritis, left knee (principal); G89.18 Other acute postprocedural pain; I10 Essential (primary) hypertension; E78.5 Hyperlipidemia, unspecified; N40.0 Benign prostatic hyperplasia without lower urinary tract symptoms; E11.65 Type 2 diabetes mellitus with hyperglycemia; H40.9 Unspecified glaucoma; Z87.891 Personal history of nicotine dependence; Z79.84 Long term (current) use of oral hypoglycemic drugs
CPT/HCPCS: 27447; 64447; 36415; 73560; 80048; 80076; 80307; 81001; 82948; 83036; 83735; 85025; 85610; 85730; 86850; 86900; 86901; 87081; 93005; 97110; 97116; 97161; 97165; 97530; 97535; A9270; C1713; C1776; G0378; J0171; J0690; J1100; J1815; J1885; J2270; J2370; J2405; J2704; J2795; J3010; J7120

== ENCOUNTER 2022-02-11 08:51 | Outpatient (CLI) | payer MEDICARE, SELFPAY ==
[2022-02-11 19:31] LABS: Alanine Aminotransferase 18 U/L (6-50); Albumin Level 4.7 g/dL (3.5-5.1); Alkaline Phosphatase 73 U/L (38-126); Anion Gap 11 mmol/L (8-16); Aspartate Amino Transferase 31 U/L (17-59); Bilirubin,Total 1.3 mg/dL (0.2-1.3); Blood Urea Nitrogen 20 mg/dL (9-20); Calcium 8.8 mg/dL (8.4-10.2); Carbon Dioxide 27 mmol/L (22-30); Chloride 101 mmol/L (98-107); Estimated Glomerular Filt Rate > 60; Glucose 207 mg/dL (65-110); Potassium 4.6 mmol/L (3.4-5.0); Sodium 139 mmol/L (137-145)
[2022-02-11 20:04] LABS: Hemoglobin A1C 7.6 % (<5.7)
[2022-02-12 00:13] LABS: Free T4 Free Thyroxine Reflex 1.27 ng/dL (0.78-2.19)
[2022-02-12 05:09] LABS: Total Triiodothyronine (T3) 1.44 NG/ML (0.97-1.69)
== END 2022-02-11 08:52 | disposition home or self-care (01) ==
LOC: ANHGOSHLAB 08:53
PROVIDERS: PCP Family Medicine; Visit Provider Family Medicine
DX: R79.89 Other specified abnormal findings of blood chemistry (principal); I10 Essential (primary) hypertension; E11.9 Type 2 diabetes mellitus without complications
CPT/HCPCS: 36415; 80053; 83036; 84439; 84443; 84480

== ENCOUNTER 2022-08-20 08:32 | Outpatient (CLI) | payer MEDICARE, SELFPAY ==
[2022-08-20 19:58] LABS: Basophils Absolute Auto 0.1 K/mm3 (0.0-0.1); Basophils Percent Auto 0.7 % (0.2-1.2); Eosinophils Absolute Auto 0.4 K/mm3 (0-0.3); Eosinophils Percent Auto 4.4 % (0-4.4); Hematocrit 45.4 % (42.0-52.0); Hemoglobin 15.4 g/dL (14.0-18.0); Immature Granulocyte Absolute 0.02 K/mm3 (0.00-0.031); Immature Granulocyte Percent A 0.2 % (0-0.5); Lymphocytes Absolute Auto 1.61 K/mm3 (0.9-3.2); Lymphocytes Percent Auto 18.5 % (18.3-44.2); Mean Corpuscular HGB Conc 33.9 g/dl (32-36); Mean Corpuscular Hemoglobin 31.1 pg (26-34); Mean Corpuscular Volume 91.7 fl (80-100); Monocytes Absolute Auto 0.6 K/mm3 (0.1-0.6); Monocytes Percent Auto 7.1 % (2.6-8.5); Neutrophils Percent Auto 69.1 % (45.5-73.1); Platelet Count Result 226 k/mm3 (150-375); Red Blood Count 4.95 M/mm3 (4.6-6.20); Red Cell Distribution Width 12.9 % (11.5-14.5); White Blood Count 8.7 K/mm3 (4.5-10.0)
[2022-08-20 20:50] LABS: Creatinine Urine 43.6 mg/dL; Hemoglobin A1C 8.1 % (<5.7)
[2022-08-20 20:54] LABS: MALB Creatinine Ratio 52.3 mg/g (0-30); Microalbumin Urine Random 22.8 mg/L (0-16.7)
[2022-08-20 21:10] LABS: Vitamin D 25 Hydroxy 56.9 ng/mL
[2022-08-20 21:22] LABS: Alanine Aminotransferase 20 U/L (6-50); Albumin Level 4.6 g/dL (3.5-5.1); Alkaline Phosphatase 63 U/L (38-126); Anion Gap 8 mmol/L (8-16); Aspartate Amino Transferase 26 U/L (17-59); Bilirubin,Total 1.2 mg/dL (0.2-1.3); Blood Urea Nitrogen 22 mg/dL (9-20); Calcium 8.8 mg/dL (8.4-10.2); Carbon Dioxide 26 mmol/L (22-30); Chloride 101 mmol/L (98-107); Cholesterol 180 mg/dL (0-200); Estimated Glomerular Filt Rate > 60; Glucose 184 mg/dL (65-110); HDL Direct 63 mg/dL; Potassium 5.1 mmol/L (3.4-5.0); Sodium 135 mmol/L (137-145); Triglycerides 98 mg/dL (<150)
[2022-08-20 21:34] LABS: LDL Cholesterol Direct 73 mg/dL
[2022-08-20 21:49] LABS: Prostate Specific Antigen 0.3 ng/mL (< OR = 4.0)
[2022-08-20 21:58] LABS: Free T4 Free Thyroxine Reflex 1.34 ng/dL (0.78-2.19)
[2022-08-20 22:49] LABS: Total Triiodothyronine (T3) 1.48 NG/ML (0.97-1.69)
== END 2022-08-20 08:33 | disposition home or self-care (01) ==
LOC: ANHGOSHLAB 08:33
PROVIDERS: PCP Family Medicine; Visit Provider Family Medicine
DX: R41.89 Other symptoms and signs involving cognitive functions and awareness (principal); E11.9 Type 2 diabetes mellitus without complications; I10 Essential (primary) hypertension; E55.9 Vitamin D deficiency, unspecified; Z12.5 Encounter for screening for malignant neoplasm of prostate; E78.5 Hyperlipidemia, unspecified; E53.8 Deficiency of other specified B group vitamins
CPT/HCPCS: 36415; 80053; 80061; 82043; 82306; 82607; 83036; 84153; 84439; 84443; 84480; 85025; G0103

== ENCOUNTER 2023-01-15 08:04 | Outpatient (CLI) | payer MEDICARE, SELFPAY ==
[2023-01-15 14:50] LABS: Alanine Aminotransferase 20 U/L (6-50); Albumin Level 4.3 g/dL (3.5-5.1); Alkaline Phosphatase 59 U/L (38-126); Anion Gap 6 mmol/L (8-16); Aspartate Amino Transferase 27 U/L (17-59); Bilirubin,Total 1.1 mg/dL (0.2-1.3); Blood Urea Nitrogen 22 mg/dL (9-20); Calcium 8.6 mg/dL (8.4-10.2); Carbon Dioxide 27 mmol/L (22-30); Chloride 103 mmol/L (98-107); Estimated Glomerular Filt Rate > 60; Glucose 152 mg/dL (65-110); Potassium 4.6 mmol/L (3.4-5.0); Sodium 136 mmol/L (137-145)
[2023-01-15 17:55] LABS: Hemoglobin A1C 7.7 % (<5.7)
[2023-01-15 18:48] LABS: Free T4 Free Thyroxine Reflex 1.35 ng/dL (0.78-2.19)
[2023-01-15 19:35] LABS: Total Triiodothyronine (T3) 1.63 NG/ML (0.97-1.69)
== END 2023-01-15 08:05 | disposition home or self-care (01) ==
LOC: ANHGOSHLAB 08:05
PROVIDERS: PCP Family Medicine; Visit Provider Family Medicine
DX: R79.89 Other specified abnormal findings of blood chemistry (principal); E11.9 Type 2 diabetes mellitus without complications; I10 Essential (primary) hypertension
CPT/HCPCS: 36415; 80053; 83036; 84439; 84443; 84480

== ENCOUNTER 2023-08-25 09:11 | Outpatient (CLI) | payer MEDICARE, SELFPAY ==
[2023-08-25 14:23] LABS: Basophils Absolute Auto 0.1 K/mm3 (0.0-0.1); Basophils Percent Auto 0.8 % (0.2-1.2); Eosinophils Absolute Auto 1.1 K/mm3 (0-0.3); Eosinophils Percent Auto 11.9 % (0-4.4); Hematocrit 48.9 % (42.0-52.0); Hemoglobin 15.8 g/dL (14.0-18.0); Immature Granulocyte Absolute 0.02 K/mm3 (0.00-0.031); Immature Granulocyte Percent A 0.2 % (0-0.5); Lymphocytes Absolute Auto 1.81 K/mm3 (0.9-3.2); Lymphocytes Percent Auto 19.5 % (18.3-44.2); Mean Corpuscular HGB Conc 32.3 g/dl (32-36); Mean Corpuscular Hemoglobin 31.3 pg (26-34); Mean Corpuscular Volume 96.8 fl (80-100); Mean Platelet Volume 9.9 fl (7.4-10.4); Monocytes Absolute Auto 0.7 K/mm3 (0.1-0.6); Monocytes Percent Auto 7.2 % (2.6-8.5); Neutrophils Absolute Auto 5.6 K/mm3 (1.3-6.7); Neutrophils Percent Auto 60.4 % (45.5-73.1); Platelet Count Result 208 k/mm3 (150-375); Red Blood Count 5.05 M/mm3 (4.6-6.20); Red Cell Distribution Width 13.1 % (11.5-14.5); White Blood Count 9.3 K/mm3 (4.5-10.0)
[2023-08-25 14:49] LABS: Alanine Aminotransferase 19 U/L (6-50); Albumin Level 4.4 g/dL (3.5-5.1); Alkaline Phosphatase 71 U/L (38-126); Anion Gap 9 mmol/L (8-16); Aspartate Amino Transferase 62 U/L (17-59); Bilirubin,Total 1.3 mg/dL (0.2-1.3); Blood Urea Nitrogen 18 mg/dL (9-20); Calcium 9.1 mg/dL (8.4-10.2); Carbon Dioxide 27 mmol/L (22-30); Chloride 100 mmol/L (98-107); Cholesterol 178 mg/dL (0-200); Estimated Glomerular Filt Rate > 60; Glucose 176 mg/dL (65-110); HDL Direct 66 mg/dL; Potassium 5.2 mmol/L (3.4-5.0); Sodium 136 mmol/L (137-145); Triglycerides 90 mg/dL (<150)
[2023-08-25 15:01] LABS: LDL Cholesterol Direct 86 mg/dL
[2023-08-25 15:19] LABS: Prostate Specific Antigen 0.3 ng/mL (< OR = 4.0)
[2023-08-25 15:23] LABS: Creatinine Urine 41.6 mg/dL
[2023-08-25 15:26] LABS: MALB Creatinine Ratio 78.8 mg/g (0-30); Microalbumin Urine Random 32.8 mg/L (0-16.7)
[2023-08-25 15:40] LABS: Hemoglobin A1C 8.5 % (<5.7)
[2023-08-26 07:44] LABS: Free T4 Free Thyroxine Reflex 1.23 ng/dL (0.78-2.19)
== END 2023-08-25 09:12 | disposition home or self-care (01) ==
LOC: ANHGOSHLAB 09:12
PROVIDERS: PCP Family Medicine; Visit Provider Family Medicine
DX: E55.9 Vitamin D deficiency, unspecified (principal); I10 Essential (primary) hypertension; E53.8 Deficiency of other specified B group vitamins; E78.5 Hyperlipidemia, unspecified; R79.89 Other specified abnormal findings of blood chemistry; E11.9 Type 2 diabetes mellitus without complications; Z12.5 Encounter for screening for malignant neoplasm of prostate; Z91.09 Other allergy status, other than to drugs and biological substances
CPT/HCPCS: 36415; 80053; 80061; 82043; 82306; 82607; 83036; 84153; 84439; 84443; 84480; 85025; G0103

== ENCOUNTER 2023-10-22 10:45 | Outpatient (RCR) | payer MEDICARE, SELFPAY ==
[2023-10-20 11:07] VITALS: BMI 31.3
[2023-10-20 13:54] VITALS: BMI 31.3
== END 2023-12-02 23:59 | disposition home or self-care (01) ==
LOC: ANHDMC 10:45
PROVIDERS: PCP Family Medicine; Visit Provider Family Medicine
DX: E11.65 Type 2 diabetes mellitus with hyperglycemia (principal); Z71.89 Other specified counseling; Z71.3 Dietary counseling and surveillance
CPT/HCPCS: 97802; G0108

== ENCOUNTER 2024-02-08 08:47 | Outpatient (CLI) | payer MEDICARE, SELFPAY ==
[2024-02-08 11:40] LABS: Basophils Absolute Auto 0.1 K/mm3 (0.0-0.1); Basophils Percent Auto 0.7 % (0.2-1.2); Eosinophils Absolute Auto 0.2 K/mm3 (0-0.3); Eosinophils Percent Auto 3.5 % (0-4.4); Hematocrit 46.6 % (42.0-52.0); Hemoglobin 14.8 g/dL (14.0-18.0); Immature Granulocyte Absolute 0.01 K/mm3 (0.00-0.031); Immature Granulocyte Percent A 0.1 % (0-0.5); Lymphocytes Absolute Auto 1.63 K/mm3 (0.9-3.2); Lymphocytes Percent Auto 23.6 % (18.3-44.2); Mean Corpuscular HGB Conc 31.8 g/dl (32-36); Mean Corpuscular Hemoglobin 31.5 pg (26-34); Mean Corpuscular Volume 99.1 fl (80-100); Mean Platelet Volume 9.8 fl (7.4-10.4); Monocytes Absolute Auto 0.6 K/mm3 (0.1-0.6); Monocytes Percent Auto 9.1 % (2.6-8.5); Neutrophils Absolute Auto 4.4 K/mm3 (1.3-6.7); Platelet Count Result 219 k/mm3 (150-375); Red Cell Distribution Width 13.4 % (11.5-14.5); White Blood Count 6.9 K/mm3 (4.5-10.0)
[2024-02-08 11:55] LABS: Alanine Aminotransferase 15 U/L (6-50); Albumin Level 4.4 g/dL (3.5-5.1); Alkaline Phosphatase 58 U/L (38-126); Anion Gap 9 mmol/L (4-12); Aspartate Amino Transferase 28 U/L (17-59); Bilirubin,Total 1.4 mg/dL (0.2-1.3); Blood Urea Nitrogen 17 mg/dL (9-20); Calcium 8.9 mg/dL (8.4-10.2); Carbon Dioxide 29 mmol/L (22-30); Chloride 102 mmol/L (98-107); Cholesterol 139 mg/dL (0-200); Estimated Glomerular Filt Rate > 60; Glucose 141 mg/dL (65-110); HDL Direct 66 mg/dL; Potassium 4.3 mmol/L (3.4-5.0); Sodium 140 mmol/L (137-145); Triglycerides 78 mg/dL (<150)
[2024-02-08 12:05] LABS: LDL Cholesterol Direct 48 mg/dL
[2024-02-08 12:28] LABS: Hemoglobin A1C 6.3 % (<5.7)
== END 2024-02-08 08:48 | disposition home or self-care (01) ==
PROVIDERS: PCP Family Medicine; Visit Provider Nurse Practitioner Family
DX: R79.89 Other specified abnormal findings of blood chemistry (principal); E11.9 Type 2 diabetes mellitus without complications; I10 Essential (primary) hypertension
CPT/HCPCS: 36415; 80053; 80061; 83036; 84439; 84443; 85025

== ENCOUNTER 2024-02-09 09:18 | Outpatient (CLI) | payer MEDICARE, SELFPAY ==
--- NOTE | ~2024-02-09 | XR_ITS ---
XR ribs LT 2V Ordering provider: Cassidy Davenport NP History: . R07.81 - Pleurodynia . Comparison: December 13, 2020 FINDINGS: BONES: Fracture of the left seventh and eighth ribs anteriorly. Degenerative the spine. LEFT LUNG: No effusions or infiltrates. No pneumothorax. SOFT TISSUES: Normal. IMPRESSION: Fracture left seventh and eighth ribs anteriorly. No pneumothorax. Reviewed, dictated and finalized at location A.
== END 2024-02-09 09:19 ==
LOC: GOSHIMG 09:19
PROVIDERS: PCP Family Medicine; Visit Provider Nurse Practitioner Family
DX: R07.81 Pleurodynia (principal); S22.42XD Multiple fractures of ribs, left side, subsequent encounter for fracture with routine healing; X58.XXXD Exposure to other specified factors, subsequent encounter
CPT/HCPCS: 71100

== ENCOUNTER 2024-05-20 08:33 | Outpatient (CLI) | payer MEDICARE, SELFPAY ==
[2024-05-20 12:17] LABS: Alanine Aminotransferase 17 U/L (6-50); Albumin Level 4.5 g/dL (3.5-5.1); Alkaline Phosphatase 69 U/L (38-126); Anion Gap 6 mmol/L (4-12); Aspartate Amino Transferase 51 U/L (17-59); Bilirubin,Total 1.3 mg/dL (0.2-1.3); Blood Urea Nitrogen 23 mg/dL (9-20); Carbon Dioxide 30 mmol/L (22-30); Chloride 103 mmol/L (98-107); Estimated Glomerular Filt Rate > 60; Glucose 141 mg/dL (65-110); Potassium 4.6 mmol/L (3.4-5.0); Sodium 139 mmol/L (137-145)
[2024-05-20 13:15] LABS: Hemoglobin A1C 6.6 % (<5.7)
== END 2024-05-20 08:34 | disposition home or self-care (01) ==
PROVIDERS: PCP Family Medicine; Visit Provider Family Medicine
DX: E11.9 Type 2 diabetes mellitus without complications (principal); I10 Essential (primary) hypertension
CPT/HCPCS: 36415; 80053; 83036

== ENCOUNTER 2024-08-30 08:19 | Outpatient (CLI) | payer MEDICARE, SELFPAY ==
--- OUTSIDE RECORDS SUMMARY | 2024-08-30 08:38 | XMS_ITS | Continuity of Care Document ---
Author Name [facility] Organization [facility] Care Team Providers Care Slurry Mixer Name Role Phone [facility] Unavailable Unavailable Problems Combined list of problems from [facility] facilities. It does not include entries that were removed or entered in error. Problem Status Onset Date Problem Type Date of Resolution Comments Source Asbestosis Active Condition [facility] Diabetes Mellitus without mention of Complication, type II or unspecified type, Active Condition Sep 05, 2005 Entered By: NOE COLLINS Comment: 15 years [facility] Glaucoma Active Condition [facility] Heart murmur Active Condition [facility] HTN Active Condition [facility] Hypercholesterolemia Active Condition [facility] Hypertrophy (Benign) of Prostate without Urinary obstruction Active Condition [facility] Other calculus in bladder Active Condition Dec 31, 2006 Entered By: NOE COLLINS Comment: had lithotripsy [facility] Medications Combined list of outpatient medications from [facility] facilities.Medications provided include 1) outpatient medications from the last 15 months, and 2) patient-reported medications. Medication Details Route Status Patient Instructions Prescription Expires Prescription Number Last Dispense Date Ordering Provider Order Date Order Qty Source ASPIRIN 81MG TAB,EC TAKE ONE TABLET BY MOUTH ONCE A DAY ORAL ACTIVE MARCY COLLINS 2005 [facility] FISH OIL CAP/TAB TAKE 2CAP BY MOUTH ONCE A DAY ORAL ACTIVE MARCY COLLINS 2007 [facility] Allergies, Adverse Reactions, Alerts Combined list of allergies from [facility] facilities. It does not include entries that were removed or entered in error. Substance Category Reaction Severity Reaction type Status Date Reported Comments Source LISINOPRIL Propensity to adverse reactions to drug (finding) Cough active 6 [facility] PENICILLIN Propensity to adverse reactions to drug (finding) Eruption active 6 [facility] SIMVASTATIN Propensity to adverse reactions to drug (finding) Pain in lower limb active 7 [facility] Immunizations Combined list of available immunizations from the Department of [facility] and [facility] facilities. Immunization Series Date Given Administered By Site Reaction Lot Number CVX Code Drug Wax Ball Knock Out Worker Status Comments Source ZOSTER LIVE 2008 121 complet ed [facility] INFLUENZA, UNSPECIFIED FORMULATION 2008 88 complet ed [facility] INFLUENZA, UNSPECIFIED FORMULATION 2007 88 complet ed [facility] INFLUENZA, UNSPECIFIED FORMULATION 2006 88 complet ed [facility] INFLUENZA, UNSPECIFIED FORMULATION 2005 88 complet ed [facility] PNEUMOCOCCAL, UNSPECIFIED FORMULATION 2005 109 complet ed [facility] TD(ADULT) UNSPECIFIED FORMULATION 2005 139 complet ed [facility] OUTSIDE FLU SHOT (HISTORICAL) 2004 88 complet ed [place], [place] L [facility] Encounters Combined list of: 1) Encounters from [facility] facilities going backup to the last 18 months, not all [place] inpatient encounters are included; 2) Encounters from the Department of [facility] facilities going backup to 280 months. Location Location Details Encounter Type Encounter Number Reason For Visit Attending Provider ADM Date DC Date Status Disposition Source [facility] Outpatient Encounter [id number] 08/23 [facility] Social History Combined list of available smoking, tobacco, and other social history from [facility] and [facility] facilities. Social History Type Response Date Comment Sourc e Tobacco smoking status NHIS QUIT TOBACCO >7 YEARS AGO 06/12/2006 [facility] History of tobacco use CURRENT NON-TOBAC CO USER-HX OF USE 09/05/2005 [facility]
--- OUTSIDE RECORDS SUMMARY | 2024-08-30 08:38 | XMS_ITS | Clinical Summary ---
Author Organization [facility] Address [address] [place] [address] Care Team Providers Care University Relations Recruiter Name Role Phone Billie Monge MD Primary Care Provider Allergies Active Allergy Reactions Criticality Noted Date Comments Penicillins Active Problems Problem Noted Date Diagnosed Date Type 2 diabetes mellitus 11/19/2013 Overview (10/10/2016): DMII WO CMP UNCNTRLD Surgical History Surgery Date Site/Laterality Comments OTHER SURGICAL HISTORY Glaucoma: Drug therapy OTHER SURGICAL HISTORY kidney stones: lithotripsy OTHER SURGICAL HISTORY ganglion cyst of the right wrist: Excision Medical History Medical History Date Comments Glaucoma Glaucoma; Outcom e: worsened Calculus of kidney kidney stones ; Outcome: resolved Hx Other Medical ganglion cyst o f the right wrist; Outcome: resolved Type 2 diabetes mellitus (HCC) D iabetes type 2 Hypertension Hypertension Hyperlipidemia Hyperlipidemia Family History Medical History Relation Name Comments Congenital heart disease Brother 2 Con genital heart disease; Cause of : Congenital heart disease Diabetes type II Brother 2 Diabetes -T ype 2; Anuerysm Father 2 Aneurysm; Cause of : Aneurysm Heart failure Mother 2 Congestive hea rt failure; Cause of : Congestive heart failure Other Sister 2 Alive and well; Relation Name Status Comments Brother 1 (Age 1) Brother 2 Father 1 (Age 67) Father 2 Mother 1 (Age 43) Mother 2 Sister 1 Alive Sister 2 Social History Tobacco Use Types Packs/Day Years Used Date Smoking Tobacco: Never Assessed Alcohol Use Standard Drinks/Week Comments No 0 (1 standard drink = 0.6 oz pur e alcohol) Sex and Gender Information Value Date Recorded Sex Assigned at Not on file Legal Sex Male 1:22 AM [employer] Gender Identity Not on file Sexual Orientation Not on file Obstetrics History Plan of Treatment Health Maintenance Due Date Last Done Comments Albumin Creatinine Ratio, Urine 1944 Depression Screening 1944 Fall Risk Assessment 1944 Hemoglobin A1C 1944 eGFR 1944 Dilated Eye Exam 1944 Foot Exam 1944 Lipid Panel 1944 DTaP/Tdap/Td Vaccine (1 - Tdap) 02/14/1955 Hepatitis B Screening 02/14/1962 Well Visit 65+ 02/14/2009 Covid-19 Vaccine (4 - 2023-2 5 season) 2024 05/09/2021, 09/25/2020, 09/03/2020 Influenza Vaccine (#1) 2024 , 03/28/2020, 03/12/2019, Additional history exists Zoster Vaccine Completed 03/04/2018, 12/03/2017 Pneumococcal vaccine 65+ Completed 020, 05/18/2019, 04/27/2018 Insurance [facility] Member Subscriber Plan / Payer (Ef fective 2021-Present) Name:Wyatt Maxwell Relation to Subscriber:Self Name:Wyatt Maxwell Payer ID:[id number] ([facility]) Type:AETNA HMO/PPO Address: [facility] [id number] [place] [address] Care Teams University Relations Recruiter Relationship Specialty Start Date End Date Billie Monge MD PCP - General Family Practice 08/10/20
--- OUTSIDE RECORDS SUMMARY | 2024-08-30 08:38 | XMS_ITS | Continuity of Care Document ---
Author Organization [facility] Address [address] [place] [address] Phone Care Team Providers Care Circuit Board Inspector Name Role Phone Merritt OD, Rex Unavailable [...] Copied on Encounter Office/outpat ient Visit, [facility], [address], [place], [place], [id number], [place] tel:[phone] [facility] No Information 2-201 0 Merritt OD Rex. [address] , [address], [place], [address], [place]. tel:[phone] Office/outpat ient Visit, [facility], [address], [place], [place], [id number], [place] tel:[phone] [facility] No Information May-2 0-201 0 Doisy Edward. [address] [facility] , [address], [place], [place], [facility], [place]. tel:[phone] Referring Provider: Darron Walsh, [address] [place], [address]. tel:[phone] Office/outpat ient Visit, [facility], [address] [place] [address] [address], [place], [place], [id number], [place] tel:[phone] [facility] No Information Oct-2 2-201 0 Doisy Edward. [address] [facility] , [address], [place], [facility] [place], [place]. tel:[phone] Office/outpat ient Visit, [facility], [address] [place] [address] [address], [place], [place], [id number], [place] tel:[phone] [facility] No Information Apr-0 5-201 0 Doisy Edward. [address] [facility] , [address], [place], [facility] [place], [place]. tel:[phone] Office/outpat ient Visit, [facility], [address] [place] [address] [address], [place], [place], [id number], [place] tel:[phone] [facility] No Information Sep-1 9-201 0 Becky Jaswinder. [address] [facility] [address], [place], [facility], [place]. tel:[phone] [facility], [address], [place], [place], [id number], tel:[phone] [facility] No Information Mar-0 5-201 0 Becky Jaswinder. [address], [place], [facility], . tel:[phone] Referring Provider: Jaswinder Pena, [address] [facility] [address], [place], [facility]. tel:[phone] [facility], [address] [place] [address] [address], [place], [place], [id number], tel:[phone] [place] [address] No Information Oct-0 9-200 9 Becky Jaswinder. [facility] [address], [place], [facility], . tel:[phone] Office/outpat ient Visit, [facility], [address] [place] [address] [address], [place], [place], [id number], tel:[phone] [facility] No Information May-2 0-200 9 Cameron Crane. [address] [place], [place] [address] , [address], [place], [facility], . tel:[phone] Referring Provider: Royce Connelly, [address] [place], [place] [address], [place], [facility]. tel:[phone] [facility], [address] [place] [address] [address], [place], [place], [id number], tel:[phone] [facility] No Information Kenny-0 6-200 9 Cameron Crane. [facility] [address] , [address], [place], [facility], . tel:[phone] Referring Provider: Royce Connelly [address] [place], [place] [address]ate [address], [place], [facility]. tel:[phone] Office/outpat ient Visit, [facility], [address] [place] [address] [address], [place], [place], [address], [place] tel:[phone] [facility] No Information 8-200 8 Doijohana Edalban. [address] , [address], [place], [facility], [place]. tel:[phone] [facility], [address] [place] [address] [address], [place], [place], [id number], [place] tel:[phone] [facility] No Information 7-200 8 Doijohana Edalban. [address] , [address], [place], [facility], [place]. tel:[phone] [facility], [address] [place] [address] [address], [place], [place], [id number], [place] tel:[phone] [facility] No Information 1-200 8 Doijohana Edalban. [address] , [address], [place], [facility], [place]. tel:[phone] Referring Provider: Royce Connelly, [address], [place], [facility]. tel:[phone] [facility], [address] [place] [address] [address], [place], [place], [id number], [place] tel:[phone] [facility] No Information 9-200 8 Doijohana Crane. [address] , [address], [place], [facility], [place]. tel:[phone] [facility], [address] [place] [address] [address], [place], [place], [id number], [place] tel:[phone] [facility] [place] No Information 0-200 8 Doijohana Crane. [address], [address], [place], [facility], [place]. tel:[phone] Referring Provider: Royce Connelly, [address], [place], [facility]. tel:[phone] Office/outpat ient Visit, [facility], [address] [place] [address] [address], [place], [place], [id number], tel:[phone] [facility] No Information May-2 2-200 8 Cameron Crane. [address] [facility] [address], [address], [place], [facility], [place]. tel:[phone] Office/outpat ient Visit, [facility], [address] [place] [address] [address], [place], [place], [id number], [place] tel:[phone] [facility] No Information Mar-2 0-200 8 Cameron Crane. [facility] [address], [address], [place], [facility], [place]. tel:[phone] [facility], [address] [place] [address] [address], [place], [place], [id number], [place] tel:[phone] [facility] No Information Nov-0 8-200 7 Cameron Crane. [facility] [address], [address], [place], [facility], [place]. tel:[phone] Referring Provider: [address], [place], [facility]. tel:[phone] Office/outpat ient Visit, [facility], [address] [place] [address] [address], [place], [place], [id number], [place] tel:[phone] [facility] No Information Wei-2 9-200 7 Cameron Crane. [address] [facility] [address], [address], [place], [facility], [place]. tel:[phone] Referring Provider: [address], [place], [facility]. tel:[phone] Family History Family Member Type Diagnosis Age At Onset No Information Payers Payer name Insurance type Covered republican ID Authorcelso mina(s) Kellie Mdcr Adv CI [id number] Social History Type Description Quantity Date Captured [...]
--- OUTSIDE RECORDS SUMMARY | 2024-08-30 08:38 | XMS_ITS | Referral Summary ---
Author Organization [facility] [facility] Address [address] [place] [address] Care Team Providers Care Shredding Machine Operator Name Role Phone Billie Monge MD Primary Care Provider Allergies Active Allergy Reactions Criticality Noted Date Comments Penicillins Active Problems Problem Noted Date Diagnosed Date Type 2 diabetes mellitus 11/19/2013 Overview (10/10/2016): DMII WO CMP UNCNTRLD Social History Tobacco Use Types Packs/Day Years Used Date Smoking Tobacco: Never Assessed Alcohol Use Standard Drinks/Week Comments No 0 (1 standard drink = 0.6 oz pur e alcohol) Sex and Gender Information Value Date Recorded Sex Assigned at Not on file 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
[2024-08-30 10:10] LABS: Basophils Absolute Auto 0.1 K/mm3 (0.0-0.1); Basophils Percent Auto 0.7 % (0.2-1.2); Eosinophils Absolute Auto 0.2 K/mm3 (0-0.3); Eosinophils Percent Auto 2.7 % (0-4.4); Hematocrit 45.6 % (42.0-52.0); Hemoglobin 14.4 g/dL (14.0-18.0); Immature Granulocyte Absolute 0.02 K/mm3 (0.00-0.031); Immature Granulocyte Percent A 0.3 % (0-0.5); Lymphocytes Absolute Auto 1.66 K/mm3 (0.9-3.2); Lymphocytes Percent Auto 22.7 % (18.3-44.2); Mean Corpuscular HGB Conc 31.6 g/dl (32-36); Mean Corpuscular Hemoglobin 31.3 pg (26-34); Mean Corpuscular Volume 99.1 fl (80-100); Mean Platelet Volume 9.8 fl (7.4-10.4); Monocytes Absolute Auto 0.6 K/mm3 (0.1-0.6); Monocytes Percent Auto 8.8 % (2.6-8.5); Neutrophils Absolute Auto 4.7 K/mm3 (1.3-6.7); Neutrophils Percent Auto 64.8 % (45.5-73.1); Platelet Count Result 213 k/mm3 (150-375); Red Cell Distribution Width 13.2 % (11.5-14.5); White Blood Count 7.3 K/mm3 (4.5-10.0)
[2024-08-30 10:21] LABS: Creatinine Urine 77.5 mg/dL
[2024-08-30 10:24] LABS: Alanine Aminotransferase 17 U/L (6-50); Albumin Level 4.1 g/dL (3.5-5.1); Alkaline Phosphatase 62 U/L (38-126); Anion Gap 8 mmol/L (4-12); Aspartate Amino Transferase 45 U/L (17-59); Blood Urea Nitrogen 19 mg/dL (9-20); Carbon Dioxide 30 mmol/L (22-30); Chloride 102 mmol/L (98-107); Cholesterol 130 mg/dL (0-200); Estimated Glomerular Filt Rate > 60; Glucose 149 mg/dL (65-110); HDL Direct 60 mg/dL; Potassium 4.7 mmol/L (3.4-5.0); Sodium 140 mmol/L (137-145); Triglycerides 104 mg/dL (<150)
[2024-08-30 10:26] LABS: MALB Creatinine Ratio 31.5 mg/g (0-30); Microalbumin Urine Random 24.4 mg/L (0-16.7)
[2024-08-30 10:34] LABS: LDL Cholesterol Direct 45 mg/dL
[2024-08-30 11:14] LABS: Prostate Specific Antigen 0.3 ng/mL (< OR = 4.0)
[2024-08-30 13:47] LABS: Hemoglobin A1C 6.5 % (<5.7)
[2024-08-30 17:05] LABS: Vitamin D 25 Hydroxy 90.3 ng/mL
[2024-08-31 03:15] LABS: Free T4 Free Thyroxine Reflex 1.29 ng/dL (0.78-2.19)
[2024-08-31 04:57] LABS: Total Triiodothyronine (T3) 1.51 NG/ML (0.97-1.69)
== END 2024-08-30 08:20 | disposition home or self-care (01) ==
PROVIDERS: PCP Family Medicine; Visit Provider Family Medicine
DX: E78.5 Hyperlipidemia, unspecified (principal); E55.9 Vitamin D deficiency, unspecified; I10 Essential (primary) hypertension; E11.9 Type 2 diabetes mellitus without complications; Z00.00 Encounter for general adult medical examination without abnormal findings; Z12.5 Encounter for screening for malignant neoplasm of prostate; E53.8 Deficiency of other specified B group vitamins
CPT/HCPCS: 36415; 80053; 80061; 82043; 82306; 82607; 83036; 84153; 84439; 84443; 84480; 85025; G0103

== ENCOUNTER 2024-11-23 10:47 | Outpatient (CLI) | payer MEDICARE, SELFPAY ==
--- NOTE | ~2024-11-23 | XR_ITS ---
Lumbosacral Spine: AP and lateral views Clinical History: Sciatica on the right side Findings: The normal lordotic curve is maintained. No fracture or subluxation evident. There is sever e degenerative disc narrowing at L4-L5 and L5-S1. There is severe facet arthropathy throughout the naye mbar spine. The sacroiliac joints are normally outlined. Impression: Moderate to severe degenerative spondylosis, worst from L4 through S1, as detailed above. Reviewed, dictated and finalized at location M. Impression: Moderate to severe degenerative spondylosis, worst from L4 through S1, as tony led above.
== END 2024-11-23 10:48 | disposition home or self-care (01) ==
LOC: GOSHIMG 10:48
PROVIDERS: PCP Family Medicine; Visit Provider Family Medicine
DX: M54.31 Sciatica, right side (principal); M47.896 Other spondylosis, lumbar region
CPT/HCPCS: 72100

== ENCOUNTER 2024-12-20 08:45 | Outpatient (RCR) | payer MEDICARE, SELFPAY ==
--- NOTE | 2024-12-09 09:46 | OPREHPOC ---
Outpatient Therapy Plan of Care This is a Multidisciplinary Plan of Care that may contain components documented by all disciplines (PT, OT, and ST.) PT Problem 1 PT Problem #1 Knowledge Deficit PT Goal 1 Goal / Goal Update Patient to demonstrate independence with home exercise program for improved self-reliance of symptom management Target Visit 10 PT Problem 2 PT Problem #2 Pain PT Goal 1 Goal / Goal Update Pt will report RLE pain <2 during ADLs to show increased functional mobility Target Visit 12 PT Problem 3 PT Problem #3 Impaired Functional Mobility PT Goal 1 Goal / Goal Update 1. Patient to improve distance ambulated during 2 Minute Walk Test from 280 ft to 400 ft to demonstrate an improvement in activities of daily living endurance 2. Patient to report ability to get in and out of truck with no complication or pain provocation 3. The patient will have improvement on the Modified Oswestry from 50% to <30% for decreased functional limitation Target Visit 12 PT Problem 4 PT Problem #4 Impaired Strength PT Goal 1 Goal / Goal Update 1. Pt will show improvements in R dorsiflexion strength to 4/5 to allow for safe gait pattern. Target Visit 12
--- NOTE | 2024-12-09 09:47 | PTOPEVAL1 ---
Assessment and note entered by Bhavesh Silver PT Evaluation Information Assessment Status Evaluation Diagnosis R sided sciatica ICD-10 Condition Codes (PT) Radiculopathy, lumbar region M54.16 Onset 3 years ago, recent flare up in November Subjective Information Pt reports initial injury 3 years ago after cleaning his ceiling fans. Pt states he has pain in RLE that is affecting his ability to walk and stand for prolonged period. Pt states he is taking tramadol and prednisone since last week and the symptoms have improved slightly but are still present. Reported Pain Level Pain Score 2: Self Report Assessment PT Clinical Summary - Patient presents to physical therapy with a primary issue of RLE pain since early November which is re-occurring injury. Patient demonstrates weakness, pain, decreased mobility, gait deficit, and decreased flexibility that limit their ability to perform activities of daily living and functional movements. Patient displays signs consistent with L4 nerve root compression causing RLE pain and R dorsiflexion weakness. Patient will benefit from skilled physical therapy to address the above listed deficits and return to prior level of function. Home exercise program instructed and written handout provided, exercises tolerated well with no adverse effects to note post-session. Patient was educated on importance of adherence to home exercise program. Patient was also educated on anatomy, prognosis, home modalities, and plan of care. Plan of Care Interventions Electrical Stimulation,Gait Training,Hot Pack/Cold Pack,Manual Therapy,Mechanical Traction,Neuro Re- education,Patient/Caregiver Education,Therapeutic Activities,Therapeutic Exercise,Self-Care/Home Management,Other PT Services Indicated Yes Treatment Frequency and 2x week for 12 visits Duration These treatments will address the objective and functional deficits as defined above. The patient will be advanced safely and appropriately in order for the patient to progress towards his/her prior level of function. Additional exercises will be introduced and as well as a comprehensive home exercise program upon discharge, if needed, ?to ensure carryover of functional gains achieved in the clinic. This treatment plan has been reviewed and agreement upon by the patient.
--- NOTE | 2024-12-23 12:18 | PTOPDC ---
Assessment and note entered by Bhavesh Silver, PT Evaluation Information Assessment Status Discharge - Pt Not Present Diagnosis R sided sciatica ICD-10 Condition Codes (PT) Radiculopathy, lumbar region M54.16 Onset 3 years ago, recent flare up in November Subjective Information Pt called to cancel all his follow ups stating he feels 95% better and did not need to come anymore . Assessment PT Clinical Summary Pt attended 3 treatment session following initial evaluation. Pt reports his back and leg pain has resolved and canceled remaining sessions. Please refer to previous treatment notes regarding patients current status. Plan of Care PT Services Indicated No
== END 2024-12-23 12:38 | disposition home or self-care (01) ==
LOC: ANHGOSHPT 08:45
PROVIDERS: PCP Family Medicine; Visit Provider Family Medicine
DX: M54.41 Lumbago with sciatica, right side (principal)
CPT/HCPCS: 97012; 97110; 97140; 97161; 97530

== ENCOUNTER 2025-01-10 09:26 | Outpatient (CLI) | payer MEDICARE, SELFPAY ==
--- NOTE | ~2025-01-10 | XR_ITS ---
Right ankle Technique: AP, oblique, and lateral views were obtained. Clinical History: Effusion Findings: No acute fracture or dislocation is seen. Osseous alignment is anatomic. Ankle mortise and other visualized joint spaces are preserved. Soft tissues are otherwise unremarkable. Impression: Unremarkable right ankle. Reviewed, dictated and finalized at location . Impression: Unremarkable right ankle.
== END 2025-01-10 09:27 | disposition home or self-care (01) ==
LOC: GOSHIMG 09:27
PROVIDERS: PCP Family Medicine; Visit Provider Family Medicine
DX: M25.471 Effusion, right ankle (principal)
CPT/HCPCS: 73610

== ENCOUNTER 2025-03-01 11:12 | Outpatient (CLI) | payer MEDICARE, SELFPAY ==
--- OUTSIDE RECORDS SUMMARY | 2010-03-07 04:30 | XMS_ITS | Continuity of Care Document ---
Author Organization [facility] Address [address] [place] [address] Phone Care Team Providers Care Washtub Worker Name Role Phone Merritt OD, Rex Unavailable Unavailable Procedures Procedure Date Office/outpatient Visit, Est Office/outpatient Visit, Est Office/outpatient Visit, Est Office/outpatient Visit, Est Office/outpatient Visit, Est Visual Field Examination(s) Eye Exam & Treatment Apr- Refraction Apr- Office/outpatient Visit, Est Fundus Photography W/ Report Visual Field Examination(s) Office/outpatient Visit, Est Post-op Follow-up Visit Laser Surgery Of Eye Post-op Follow-up Visit Laser Surgery Of Eye Office/outpatient Visit, Est Office/outpatient Visit, Est Visual Field Examination(s) Office/outpatient Visit, Est Corneal Pachymetry Fundus Photography W/ Report Advance Directives Directive Yes / No Effective Date File Name No Information Encounters Encounter Description Practice Location Reason(s) For Visit Diagnoses Date Provider Providers Copied on Encounter Office/outpat ient Visit, Est [facility], [address], [place], [place], [id number], [place] tel:[phone] [facility] No Information 2-201 0 Merritt OD Rex. [address] , [address], [place], [address], [place]. tel:[phone] Office/outpat ient Visit, [facility], [address], [place], [place], [id number], [place] tel:[phone] [facility] No Information May-2 0-[address] , [address], [place], [place], [facility], [place]. tel:[phone] Referring Provider: Darron Walsh, [address] [place], [address]. tel:[phone] Office/outpat ient Visit, [facility], [address] [place] [address] [address], [place], [place], [id number], [place] tel:[phone] [facility] No Information Oct-2 2-201 0 Doisy Edward. [address] [facility] [address] , [address], [place], [place], [facility], [place]. tel:[phone] Office/outpat ient Visit, [facility], [address] [place] [address] [address], [place], [place], [id number], [place] tel:[phone] [facility] No Information Apr-0 5-201 0 Doisy Edward. [address] [facility] [address] , [address], [place], [facility], [place]. tel:[phone] Office/outpat ient Visit, [facility], [address] [place] [address] [address], [place], [place], [id number], [place] tel:[phone] [facility] No Information Sep-1 9-201 0 Becky Jaswinder. [address], [place], [facility], [place]. tel:[phone] [facility], [address], [place], [place], [address], tel:[phone] [facility] No Information Mar-0 5-201 0 Becky Jaswinder. [address], [place], [facility], . tel:[phone] Referring Provider: Jaswinder Pena, [address] [facility] [address], [place], [facility]. tel:[phone] [facility], [address] [place] [address] [address], [place], [place], [id number], tel:[phone] [place] [address] No Information Oct-0 9-200 9 Becky Jaswinder. [facility] [facility] [address], [place], [facility], . tel:[phone] Office/outpat ient Visit, [facility], [address] [place] [address] [address], [place], [place], [id number], tel:[phone] [facility] No Information May-2 0-200 9 Cameron Crane. [address] [place], [place] [address] , [address], [place], [facility], . tel:[phone] Referring Provider: Royce Connelly, [address] [place], [place] [address], [place], [facility]. tel:[phone] [facility] Eye [facility], [address] [place] [address] [address], [place], [place], [id number], tel:[phone] [facility] No Information Kenny-0 6-200 9 Cameron Crane. [facility] [address] , [address], [place], [facility], . tel:[phone] Referring Provider: Royce Connelly [address] [place], [place] [address], [place], [facility]. tel:[phone] Office/outpat ient Visit, [facility] Eye [facility], [address] [place] [address] [address], [place], [place], [id number], [place] tel:[phone] [facility] No Information 8-200 8 Doijohana Edalban. [address] , [address], [place], [facility], [place]. tel:[phone] [facility] Eye [facility], [address] [place] [address] [address], [place], [place], [address], [place] tel:[phone] [facility] No Information 7-200 8 Doijohana Edalban. [address] , [address], [place], [facility], [place]. tel:[phone] [facility] Eye [facility], [address] [place] [address] [address], [place], [place], [address], [place] tel:[phone] [facility] [place] No Information 1-200 8 Doijohana Edalban. [address] , [address], [place], [facility], [place]. tel:[phone] Referring Provider: Royce Connelly, [address], [place], [facility]. tel:[phone] [facility], [address] [place] [address] [address], [place], [place], [address], [place] tel:[phone] [facility] No Information 9-200 8 Doijohana Crane. [address] , [address], [place], [facility], [place]. tel:[phone] [facility], [address] [place] [address] [address], [place], [place], [address], [place] tel:[phone] [facility] [place] No Information 0-200 8 Doijohana Crane. [address], [address], [place], [facility], [place]. tel:[phone] Referring Provider: Royce Connelly, [address], [place], [facility]. tel:[phone] Office/outpat ient Visit, [facility], [address] [place] [address] [address], [place], [place], [id number], tel:[phone] [facility] No Information May-2 2-[address] [facility], [address], [place], [facility], [place]. tel:[phone] Office/outpat ient Visit, [facility], [address] [place] [address] [address], [place], [place], [id number], [place] tel:[phone] [facility] No Information Mar-2 0-200 8 Cameron [facility] [facility], [address], [place], [facility], [place]. tel:[phone] [facility], [address] [place] [address] [address], [place], [place], [id number], [place] tel:[phone] [facility] No Information Nov-0 8-200 7 Cameron Crane. [facility] [address], [address], [place], [facility], [place]. tel:[phone] Referring Provider: [address], [place], [facility]. tel:[phone] Office/outpat ient Visit, [facility], [address] [place] [address] [address], [place], [place], [address], [place] tel:[phone] [facility] No Information Wei-2 9-[address] [facility] [address], [address], [place], [facility], [place]. tel:[phone] Referring Provider: [address], [place], [facility]. tel:[phone] Family History Family Member Type Diagnosis Age At Onset No Information Payers Payer name Insurance type Covered alliance party ID Authorcelso mina(s) Kellie Mdcr Adv CI [id number] Social History Type Description Quantity Date Captured Comments Sex Male Smoking Status No Information Chief Complaint And Reason For Visit No Information Reason For Referral Reason For Referral No Information History Of Present Illness Encounter Date Complaint History Of Prese nt Illness No Information Functional Status Date Functional Assessmen t No Information Instructions Date Instruction Additional Infor mation No Information Assessments Type Assessment Date No Information Patient Care Teams Name Effective Dates (start - stop) Status Members No Information
--- OUTSIDE RECORDS SUMMARY | 2024-08-23 13:15 | XMS_ITS | Continuity of Care Document ---
Author Name [facility] Organization [facility] Care Team Providers Care Etl Analyst Developer Name Role Phone [facility] Unavailable Unavailable Problems Combined list of problems from [facility] facilities. It does not include entries that were removed or entered in error. Problem Status Onset Date Problem Type Date of Resolution Comments Source Asbestosis Active Condition [facility] Diabetes Mellitus without mention of Complication, type II or unspecified type, Active Condition Sep 05, 2005 Entered By: NOE COLLINS Comment: 15 years [facility] Glaucoma Active Condition [facility] Heart murmur Active Condition [facility] HTN Active Condition [facility] Hypercholesterolemia Active Condition [facility] Hypertrophy (Benign) of Prostate without Urinary obstruction Active Condition [facility] Other calculus in bladder Active Condition Dec 31, 2006 Entered By: NOE COLLINS Comment: had lithotripsy [facility] Medications Combined list of outpatient medications from [facility] facilities.Medications provided include 1) outpatient medications from the last 15 months, and 2) patient-reported medications. Medication Details Route Status Patient Instructions Prescription Expires Prescription Number Last Dispense Date Ordering Provider Order Date Order Qty Source ASPIRIN 81MG TAB,EC TAKE ONE TABLET BY MOUTH ONCE A DAY ORAL ACTIVE MARCY COLLINS 2005 [facility] FISH OIL CAP/TAB TAKE 2CAP BY MOUTH ONCE A DAY ORAL ACTIVE MARCY COLLINS 2007 [facility] Allergies, Adverse Reactions, Alerts Combined list of allergies from [facility] facilities. It does not include entries that were removed or entered in error. Substance Category Reaction Severity Reaction type Status Date Reported Comments Source LISINOPRIL Propensity to adverse reactions to drug (finding) Cough active 6 [facility] PENICILLIN Propensity to adverse reactions to drug (finding) Eruption active 6 [facility] SIMVASTATIN Propensity to adverse reactions to drug (finding) Pain in lower limb active 7 [facility] Immunizations Combined list of available immunizations from the Department of [facility] and [facility] facilities. Immunization Series Date Given Administered By Site Reaction Lot Number CVX Code Drug Ticket Counter Status Comments Source ZOSTER LIVE 2008 121 complet ed [facility] INFLUENZA, UNSPECIFIED FORMULATION 2008 88 complet ed [facility] INFLUENZA, UNSPECIFIED FORMULATION 2007 88 complet ed [facility] INFLUENZA, UNSPECIFIED FORMULATION 2006 88 complet ed [facility] INFLUENZA, UNSPECIFIED FORMULATION 2005 88 complet ed [facility] PNEUMOCOCCAL, UNSPECIFIED FORMULATION 2005 109 complet ed [facility] TD(ADULT) UNSPECIFIED FORMULATION 2005 139 complet ed [facility] OUTSIDE FLU SHOT (HISTORICAL) 2004 88 complet ed [place], [place] L [facility] Encounters Combined list of: 1) Encounters from [facility] facilities going backup to the last 18 months, not all [place] inpatient encounters are included; 2) Encounters from the Department of [facility] facilities going backup to 280 months. Location Location Details Encounter Type Encounter Number Reason For Visit Attending Provider ADM Date DC Date Status Disposition Source [facility] Outpatient Encounter [id number] 5 08/23 [facility] Social History Combined list of available smoking, tobacco, and other social history from [facility] and [facility] facilities. Social History Type Response Date Comment Sourc e Tobacco smoking status NHIS QUIT TOBACCO >7 YEARS AGO 06/12/2006 [facility] History of tobacco use CURRENT NON-TOBAC CO USER-HX OF USE 09/05/2005 [facility]
--- OUTSIDE RECORDS SUMMARY | 2025-03-01 11:33 | XMS_ITS | Clinical Summary ---
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
[2025-03-01 16:14] LABS: Alanine Aminotransferase 20 U/L (6-50); Albumin Level 4.5 g/dL (3.5-5.1); Alkaline Phosphatase 57 U/L (38-126); Anion Gap 8 mmol/L (4-12); Aspartate Amino Transferase 48 U/L (17-59); Bilirubin,Total 1.1 mg/dL (0.2-1.3); Blood Urea Nitrogen 22 mg/dL (9-20); Calcium 9.6 mg/dL (8.4-10.2); Carbon Dioxide 28 mmol/L (22-30); Chloride 104 mmol/L (98-107); Estimated Glomerular Filt Rate > 60; Glucose 70 mg/dL (65-110); Potassium 5.4 mmol/L (3.4-5.0); Sodium 140 mmol/L (137-145); Total Protein 7.5 g/dL (6.3-8.2)
[2025-03-01 16:45] LABS: Thyroid Stimulating Hormone Reflex 6.810 uIU/mL (0.465-4.68)
[2025-03-01 16:53] LABS: Hemoglobin A1C 6.6 % (<5.7)
[2025-03-01 18:16] LABS: Free T4 Free Thyroxine Reflex 1.10 ng/dL (0.78-2.19)
[2025-03-01 19:06] LABS: Total Triiodothyronine (T3) 1.42 NG/ML (0.82-1.58)
== END 2025-03-01 11:13 | disposition home or self-care (01) ==
LOC: ANHGOSHLAB 11:12
PROVIDERS: PCP Family Medicine; Visit Provider Family Medicine
DX: E11.9 Type 2 diabetes mellitus without complications (principal); I10 Essential (primary) hypertension; E55.9 Vitamin D deficiency, unspecified
CPT/HCPCS: 36415; 80053; 82306; 83036; 84439; 84443; 84480

== ENCOUNTER 2025-03-01 11:34 | Outpatient (CLI) | payer MEDICARE, SELFPAY ==
--- NOTE | ~2025-03-01 | XR_ITS ---
XR knee LT min 4V 03/01/2025 12:04 Indication: Left knee pain Procedure: 4 views left knee Comparison: Comparison to multiple prior studies sequentially, with oldest reviewed study dated 09/25/2021. Findings: There is a left total knee arthroplasty. Prosthesis well seated. No fracture or traumatic malalignment. No evidence for loosening. No joint effusion. Impression: 1: No acute bone or joint abnormality. Reviewed, dictated and finalized at location O. Impression: 1: No acute bone or joint abnormality.
== END 2025-03-01 11:35 | disposition home or self-care (01) ==
LOC: GOSHIMG 11:35
PROVIDERS: PCP Family Medicine; Visit Provider Family Medicine
DX: M25.562 Pain in left knee (principal)
CPT/HCPCS: 73564

== ENCOUNTER 2025-03-13 10:22 | Outpatient (CLI) | payer MEDICARE, SELFPAY ==
--- OUTSIDE RECORDS SUMMARY | 2025-03-13 10:46 | XMS_ITS | Clinical Summary ---
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
[2025-03-13 13:23] LABS: Anion Gap 8 mmol/L (4-12); Blood Urea Nitrogen 19 mg/dL (9-20); Calcium 9.2 mg/dL (8.4-10.2); Carbon Dioxide 28 mmol/L (22-30); Chloride 103 mmol/L (98-107); Estimated Glomerular Filt Rate > 60; Glucose 158 mg/dL (65-110); Potassium 4.6 mmol/L (3.4-5.0); Sodium 139 mmol/L (137-145)
== END 2025-03-13 10:23 | disposition home or self-care (01) ==
LOC: ANHGOSHLAB 10:22
PROVIDERS: PCP Family Medicine; Visit Provider Family Medicine
DX: E87.5 Hyperkalemia (principal)
CPT/HCPCS: 36415; 80048